=== PATIENT | male | born 1955 | race Caucasian/White ===

== ENCOUNTER 2018-01-23 18:23 | Emergency (ER) | payer BC ==
[~2018-01-23] VITALS: Ht 185.4 cm; Wt 122.5 kg
[~2018-01-23 18:23] MED LIST: ALPRAZOLAM0.25 MG PO; ASPIRIN81 MG PO; ATIVAN0.5 MG PO; CELEBREX100 MG PO; DAILY VITAMIN1 EAC3 PO; FAMOTIDINE20 MG PO; HYCET 7.5 MG-3473 ML PO; LABETALOL HCL100 MG PO; LEVOFLOXACIN500 MG PO; LIDOCAINE PATCH TOP; MIRAPEX0.25 MG PO; NEURONTIN300 MG PO; NIFEDIPINE ER30 M1 PO; PROMETHAZINE HC25 M1 PO; SIMVASTATIN20 MG PO; SYNTHROID200 MCG PO; TESSALON PERLE100 MG PO; VITAMIN D31000 UNI1 PO; ZESTRIL10 MG PO; ZOLOFT50 MG PO
[2018-01-23] MEDS ORDERED: BROMFED DM COU118 ML PO (19:22)
[2018-01-23] MEDS ORDERED: NASONEX17 GM (19:22)
[2018-01-23] MEDS ORDERED: XYZAL5 MG PO (19:22)
== END 2018-01-23 19:25 | disposition home or self-care (01) ==
LOC: FSED 18:23
DX: R05 Cough (principal); J00 Acute nasopharyngitis [common cold]; J02.9 Acute pharyngitis, unspecified
CPT/HCPCS: 99282

== ENCOUNTER 2018-08-29 01:49 | Emergency (ER) | payer BC ==
[~2018-08-29] VITALS: Ht 185.4 cm; Wt 136.1 kg
[~2018-08-29 01:49] MED LIST changes: +BROMFED DM COU118 ML PO; +NASONEX17 GM; +XYZAL5 MG PO
[2018-08-29] MEDS ORDERED: ASPIRIN 81 MG CHEW TAB PO ONE (02:15)
[2018-08-29 02:29] LABS: BASOPHILS % 0.2 % (0.0-1.0); EOSINOPHILS # (AUTO) 0.1 (0.0-0.4); EOSINOPHILS % 1.4 % (0.0-6.0); HEMATOCRIT 47.2 % (38.2-49.6); HEMOGLOBIN 15.8 g/dL (14.0-18.0); LYMPHOCYTES # (AUTO) 2.6 (1.0-3.2); LYMPHOCYTES % 25.6 % (18.0-39.1); MEAN CORPUSCULAR HEMOGLOBIN 29.2 pg (28-32); MEAN CORPUSCULAR HGB CONC 33.5 g/dL (31-35); MEAN CORPUSCULAR VOLUME 87.2 fL (81-99); MONOCYTES % 9.3 % (4.4-11.3); NEUTROPHILS # (AUTO) 6.5 (2.1-6.9); NEUTROPHILS % 63.2 % (38.7-80.0); PLATELET COUNT 197 x10e3/uL (140-360); RED BLOOD COUNT 5.41 x10e6/uL (4.3-5.7); RED CELL DISTRIBUTION WIDTH 13.4 % (11.7-14.4)
[2018-08-29 02:34] LABS: INR 0.87; PARTIAL THROMBOPLASTIN TIME 28.6 seconds (23.8-35.5); PROTHROMBIN TIME 12.6 seconds (11.9-14.5)
[2018-08-29 02:41] LABS: ALBUMIN 4.4 g/dL (3.5-5.0); ALBUMIN/GLOBULIN RATIO 1.2 (0.8-2.0); ANION GAP 16.8 mmol/L (8-16); CALCIUM 9.9 mg/dL (8.4-10.2); CREATININE, SERUM 1.39 mg/dL (0.72-1.25); POTASSIUM 3.8 mmol/L (3.5-5.1)
[2018-08-29 02:44] LABS: CLARITY,URINE CLEAR (CLEAR); COLOR,URINE YELLOW (YELLOW); LEUKOCYTE ESTERASE ,URINE NEGATIVE (NEGATIVE); NITRITE,URINE NEGATIVE (NEGATIVE); PROTEIN,URINE DIPSTICK NEGATIVE (NEGATIVE)
[2018-08-29] MEDS ORDERED: ONDANSETRON HCL INJ 2 MG/ML VIAL IV STA (02:44)
[2018-08-29 02:45] LABS: BILIRUBIN,URINE NEGATIVE (NEGATIVE); KETONES,URINE NEGATIVE (NEGATIVE); URINE UROBILINOGEN 0.2 mg/dL (0.2 - 1)
[2018-08-29] MEDS ORDERED: SODIUM CHLORIDE 0.9% 1000ML 1,000 ML IV SCH (02:45)
[2018-08-29 02:47] LABS: BACTERIA,URINE RARE /HPF; EPITHELIAL CELLS,URINE RARE /LPF; RBC,URINE 0-5 /HPF (0-5); WBC,URINE (MAN) 0-5 /HPF (0-5)
[2018-08-29 02:48] LABS: CREATINE KINASE MB 1.2 ng/mL (0-5.0)
[2018-08-29] MEDS ORDERED: IOPAMIDOL 370 MG/ML 200 ML INFUS..BTL INJ ONE (03:27)
[2018-08-29] MEDS ORDERED: SODIUM CHLORIDE 0.9% 50ML 50 ML ONE (03:27)
--- NOTE | 2018-08-29 04:14 | Diagnostic Imaging Report ---
EXAM: CT Chest WITH contrast (PE Protocol) INDICATION: Hypertension ^R/O PE ^[id number] ^0339 COMPARISON: None TECHNIQUE: Chest was scanned utilizing a multidetector helical scanner from the lung apex through the level of the diaphragm after administration of IV contrast. Thin section reconstructions were obtained with special concentration on the pulmonary arteries. Coronal and sagittal reformations were obtained. Pulmonary embolism protocol was performed. IV CONTRAST: 100 mL of Isovue 370 COMPLICATIONS: None RADIATION DOSE: Total DLP: 620 3. mGy*cm Estimated effective dose: (DLP x 0.014 x size factor) mSv CTDIvol has been reviewed. It is below the limits set by the Radiation Protocol Committee (RPC). Dose modulation, iterative reconstruction, and/or weight based adjustment of the mA/kV was utilized to reduce the radiation dose to as low as reasonably achievable. FINDINGS: LINES/ TUBES: None. LUNGS AND AIRWAYS: No filling defect is identified within the pulmonary arteries to the segmental level. The lungs are unremarkable. Airways are normal. PLEURA: The pleural spaces are clear. HEART AND MEDIASTINUM: The thyroid gland is normal. No mediastinal, hilar or axillary lymphadenopathy. The heart is normal in size.. There is no pericardial effusion. . UPPER ABDOMEN: Gallstones in the gallbladder neck. No adjacent stranding. BONES: There are degenerative changes in the thoracic spine. SOFT TISSUES: Unremarkable. IMPRESSION: No pulmonary emboli. Signed by: DR. Andrade Hernandez MD on 08/29/2018 4:10 AM
[2018-08-29] MEDS ORDERED: SODIUM CHLORIDE 0.9% 1000ML 1,000 ML IV STA (04:47)
== END 2018-08-29 05:36 | disposition home or self-care (01) ==
LOC: ER 01:49
DX: E86.0 Dehydration (principal); R00.0 Tachycardia, unspecified
CPT/HCPCS: 36415; 71260; 80053; 81001; 82550; 82553; 84484; 85025; 85379; 85610; 85730; 93005; 99284; J2405; J7030; Q9967

== ENCOUNTER 2018-09-17 09:08 | Emergency (ER) | payer BC ==
[~2018-09-17] VITALS: Ht 185.4 cm; Wt 136.1 kg
--- OUTSIDE RECORDS SUMMARY | 2018-09-17 09:11 | XMS REPORT ---
Author Author [facility] Address Unknown Phone Unavailable Care Team Providers [employer] Officer Name Role Phone Connie PAULSON Unavailable Unavailable Problems This patient has no known problems. Allergies, Adverse Reactions, Alerts This patient has no known allergies or adverse reactions. Medications This patient has no known medications. Results Test Description Test Time Test Comments Text Results Atomic Results Result Comments CT CHEST W 2018-08-29 03:59:00 [place] [address] Patient Name: ROSSANA LEWIS MR #: [id number] : 1955 Age/Sex: 63/M Req #: [id number] [facility] Physician: Ordered by: ARIE PAULSON MD Report #: [id number] Location: ER Room/Bed: Procedure: [id number] CT/CT CHEST W Exam Date: 08/29/18 Exam Time: 338 REPORT STATUS: Signed EXAM: CT Chest WITH contrast (PE Protocol) INDICATION: Hypertension R/O PE [id number] COMPARISON: None TECHNIQUE: Chest was scanned utilizing a multidetector helical scanner from the lung apex through the level of the diaphragm after administration of IV contrast. Thin section reconstructions were obtained with special concentration on the pulmonary arteries. Coronal and sagittal reformations were obtained. Pulmonary embolism protocol was performed. IV CONTRAST: 100 mL of Isovue 370 COMPLICATIONS: None RADIATION DOSE: Total DLP: 620 3. mGy*cm Estimated effective dose: (DLP x 0.014 x size factor) mSv CTDIvol has been reviewed. It is below the limits set by the Radiation Protocol Committee (RPC). Dose modulation, iterative reconstruction, and/or weight based adjustment of the mA/kV was utilized to reduce the radiation dose to as low as reasonably achievable. FINDINGS: LINES/ TUBES: None. LUNGS AND AIRWAYS: No filling defect is identified within the pulmonary arteries to the segmental level. The lungs are unremarkable. Airways are normal. PLEURA: The pleural spaces are clear. HEART AND MEDIASTINUM: The thyroid gland is normal. No mediastinal, hilar or axillary lymphadenopathy. The heart is normal in size.. There is no pericardial effusion. . UPPER ABDOMEN: Gallstones in the gallbladder neck. No adjacent stranding. BONES: There are degenerative changes in the thoracic spine. SOFT TISSUES: Unremarkable. IMPRESSION: No pulmonary emboli. Signed by: DR. Andrade Hernandez MD on 08/29/2018 4:10 AM Dictated By: ANDRADE HERNANDEZ MD 9 Transcribed By: ZAHRA on 08/29/18409 COPY TO: ARIE PAULSON MD
[2018-09-17 10:09] LABS: BASOPHILS % 0.5 % (0.0-1.0); EOSINOPHILS # (AUTO) 0.2 (0.0-0.4); HEMATOCRIT 44.4 % (38.2-49.6); HEMOGLOBIN 14.6 g/dL (14.0-18.0); LYMPHOCYTES # (AUTO) 2.2 (1.0-3.2); LYMPHOCYTES % 29.3 % (18.0-39.1); MEAN CORPUSCULAR HEMOGLOBIN 29.3 pg (28-32); MEAN CORPUSCULAR HGB CONC 32.9 g/dL (31-35); MONOCYTES # (AUTO) 0.7 (0.2-0.8); MONOCYTES % 9.7 % (4.4-11.3); NEUTROPHILS # (AUTO) 4.4 (2.1-6.9); NEUTROPHILS % 58.2 % (38.7-80.0); PLATELET COUNT 163 x10e3/uL (140-360); RED BLOOD COUNT 4.99 x10e6/uL (4.3-5.7); RED CELL DISTRIBUTION WIDTH 13.6 % (11.7-14.4)
[2018-09-17 10:17] LABS: BILIRUBIN,URINE NEGATIVE (NEGATIVE); CLARITY,URINE CLEAR (CLEAR); COLOR,URINE YELLOW (YELLOW); KETONES,URINE NEGATIVE (NEGATIVE); LEUKOCYTE ESTERASE ,URINE NEGATIVE (NEGATIVE); NITRITE,URINE NEGATIVE (NEGATIVE); PROTEIN,URINE DIPSTICK NEGATIVE (NEGATIVE); URINE UROBILINOGEN 0.2 mg/dL (0.2 - 1)
[2018-09-17 10:24] LABS: ALBUMIN 3.9 g/dL (3.5-5.0); ALBUMIN/GLOBULIN RATIO 1.1 (0.8-2.0); CALCIUM 9.2 mg/dL (8.4-10.2); CREATININE, SERUM 1.41 mg/dL (0.72-1.25)
[2018-09-17 10:34] LABS: BACTERIA,URINE RARE /HPF; EPITHELIAL CELLS,URINE RARE /LPF; RBC,URINE 0-5 /HPF (0-5)
[2018-09-17] MEDS ORDERED: ULTRAM50 MG PO (12:06)
[2018-09-17] MEDS ORDERED: HYDROCODONE/APAP 10MG-325MG TAB ONE (12:08)
[2018-09-17] MEDS ORDERED: HYDROCODONE/APAP 10MG-325MG TAB PO ONE (12:15)
[2018-09-17 12:36] VITALS: BP 149/96
[2018-09-17] MEDS ORDERED: HYDROMORPHONE 2MG/ML 2 MG/ML ML IV ONE (18:45)
== END 2018-09-17 12:10 | disposition home or self-care (01) ==
LOC: ER 09:08
DX: R10.11 Right upper quadrant pain (principal); K80.20 Calculus of gallbladder without cholecystitis without obstruction
CPT/HCPCS: 36415; 80053; 81001; 83690; 85025; 93005; 99283; J1170

== ENCOUNTER 2019-02-19 09:13 | Emergency (ER) | payer BC ==
[~2019-02-19] VITALS: Ht 185.4 cm; Wt 136.1 kg
[~2019-02-19 09:13] MED LIST changes: +ULTRAM50 MG PO
--- OUTSIDE RECORDS SUMMARY | 2019-02-19 09:16 | XMS REPORT | Continuity of Care Document ---
Author Author [facility] Interface Address Unknown Phone Unavailable Problems Problem Status Onset Date Classification Date Reported Comments Source Anxiety Active Problem 09/17/2018 [facility] Bronchitis Active Problem 09/17/2018 [facility] Hypertensive emergency Active Problem 09/17/2018 [facility] Medications Medication Details Route Status Patient Instructions Ordering Provider Order Date Source Tramadol Hcl (Ultram) 50 Mg Tablet Every 6 Hours as needed for Pain Active Enrike 09/17/2018 [facility] D-Methorphan Hb/P-Epd Hcl/Bpm (Bromfed Dm Cough Syrup) 118 Ml Syrup Every 4 Hours as needed for Cough Active Ray 01/23/2018 [facility] Levocetirizine Dihydrochloride (Xyzal) 5 Mg Tablet Daily Active Ray 01/23/2018 [facility] Mometasone Furoate (Nasonex) 17 Gm [place] Daily Active Ray 01/23/2018 [facility] Alprazolam 0.25 Mg Tablet Every 8 Hours Active Rossana 10/01/2016 [facility] Famotidine 20 Mg Tab Twice Daily Before Meals Active Rossana 10/01/2016 [facility] Labetalol Hcl 100 Mg Tablet Every 12 Hours Active Rossana 10/01/2016 [facility] Nifedipine (Nifedipine Er) 30 Mg Tab.er.24 Every 12 Hours Active Rossana 10/01/2016 [facility] Lisinopril (Zestril*) 10 Mg Tablet, 10 Mg Oral Daily Active 10/01/2016 [facility] Benzonatate (Tessalon Perle) 100 Mg Capsule, 100 Mg Oral Every 12 Hours as needed for Cough Active 09/30/2016 [facility] Cholecalciferol (Vitamin D3) (Vitamin D3) 1,000 Unit Tablet, 1000 Unit Oral Daily Active 09/30/2016 [facility] Hydrocodone Bit/Acetaminophen (Hycet 7.5 Mg-325 Mg/15 Ml Alexandra) 473 Ml Solution, 5 Ml Oral Every 4 Hours for Cough Active 09/30/2016 [facility] Levofloxacin 500 Mg Tablet, 500 Mg Oral Daily Active 09/30/2016 [facility] Multivitamin (Daily Vitamin) 1 Each Tablet, 1 Tab Oral Daily Active 09/30/2016 [facility] Aspirin 81 Mg Tab.chew Active [facility] Celecoxib (Celebrex*) 100 Mg Capsule Daily Active [facility] Gabapentin (Neurontin) 300 Mg Capsule Daily Active [facility] Levothyroxine Sodium (Synthroid) 200 Mcg Tablet Today At 6:30AM Active [facility] Lidocaine Patch Every 12 Hours Active [facility] Lorazepam (Ativan*) 0.5 Mg Tablet Bedtime Active [facility] Pramipexole Di-Hcl (Mirapex) 0.25 Mg Tablet Daily Active [facility] Promethazine Hcl 25 Mg Tablet Daily Active [facility] Sertraline Hcl (Zoloft) 50 Mg Tablet Bedtime Active [facility] Simvastatin 20 Mg Tablet Today At 9:00PM Active [facility] Allergies, Adverse Reactions, Alerts Substance Category Reaction Severity Reaction type Status Date Reported Comments Source Immunizations Immunization Date Given Site Status Last Updated Comments Source Results Order Name Results Value Reference Range Date Interpretation Comments Source Blood leukocytes automated count (number/volume) 7.62 4.8 - 10.8 09/17/2018 [facility] Blood erythrocytes automated count (number/volume) 4.99 4.3 - 5.7 09/17/2018 [facility] Blood hemoglobin measurement (moles/volume) 14.6 14.0 - 18.0 09/17/2018 [facility] Automated blood hematocrit (volume fraction) 44.4 38.2 - 49.6 09/17/2018 [facility] Automated erythrocyte mean corpuscular volume 89.0 81 - 99 09/17/2018 [facility] Automated erythrocyte mean corpuscular hemoglobin (mass per erythrocyte) 29.3 28 - 32 09/17/2018 [facility] Automated erythrocyte mean corpuscular hemoglobin concentration measurement (mass/volume) 32.9 31 - 35 09/17/2018 [facility] RDW BldCo-Rto 13.6 11.7 - 14.4 09/17/2018 [facility] Automated blood platelet count (count/volume) 163 140 - 360 09/17/2018 [facility] Automated blood segmented neutrophil count as percentage of total leukocytes 58.2 38.7 - 80.0 09/17/2018 [facility] Automated blood lymphocyte count as percentage ot total leukocytes 29.3 18.0 - 39.1 09/17/2018 [facility] Automated blood monocyte count as percentage of total leukocytes 9.7 4.4 - 11.3 09/17/2018 [facility] Automated blood eosinophil count as percentage of total leukocytes 2.0 0.0 - 6.0 09/17/2018 [facility] Automated blood basophil count as percentage of total leukocytes 0.5 0.0 - 1.0 09/17/2018 [facility] IM GRANULOCYTES % 0.3 0.0 - 1.0 09/17/2018 [facility] Automated blood neutrophil count 4.4 2.1 - 6.9 09/17/2018 [facility] Blood lymphocytes count (number/volume) 2.2 1.0 - 3.2 09/17/2018 [facility] Blood monocytes automated count (number/volume) 0.7 0.2 - 0.8 09/17/2018 [facility] Automated blood eosinophil count 0.2 0.0 - 0.4 09/17/2018 [facility] Automated blood basophil count (count/volume) 0.0 0.0 - 0.1 09/17/2018 [facility] Absolute Immature Granulocyte (auto 0.02 0 - 0.1 09/17/2018 [facility] Serum or plasma sodium measurement (moles/volume) 138 136 - 145 09/17/2018 [facility] Serum or plasma potassium measurement (moles/volume) 4.0 3.5 - 5.1 09/17/2018 [facility] Serum or plasma chloride measurement (moles/volume) 101 98 - 107 09/17/2018 [facility] Serum or plasma carbon dioxide, total measurement (moles/volume) 25 22 - 29 09/17/2018 [facility] Serum or plasma anion gap 16.0 8 - 16 09/17/2018 [facility] Serum or plasma urea nitrogen measurement (mass/volume) 31 7 - 26 09/17/2018 [facility] Serum or plasma creatinine measurement (mass/volume) 1.41 0.72 - 1.25 09/17/2018 [facility] Serum or plasma urea nitrogen/creatinine mass ratio 22 6 - 25 09/17/2018 [facility] Estimated glomerular filtration rate (GFR) determination 51 60 09/17/2018 [facility] Glucose measurement 181 74 - 118 09/17/2018 [facility] Serum or plasma calcium measurement (mass/volume) 9.2 8.4 - 10.2 09/17/2018 [facility] Serum or plasma total bilirubin measurement (mass/volume) 0.3 0.2 - 1.2 09/17/2018 [facility] Aspartate Amino Transf (AST/SGOT) 17 5 - 34 09/17/2018 [facility] Serum or plasma alanine aminotransferase measurement (enzymatic activity/volume) 33 0 - 55 09/17/2018 [facility] Serum or plasma protein measurement (mass/volume) 7.3 6.5 - 8.1 09/17/2018 [facility] Serum or plasma albumin measurement (mass/volume) 3.9 3.5 - 5.0 09/17/2018 [facility] Plasma globulin measurement (mass/volume) 3.4 2.3 - 3.5 09/17/2018 [facility] Serum or plasma albumin/globulin mass ratio 1.1 0.8 - 2.0 09/17/2018 [facility] Serum or plasma alkaline phosphatase measurement (enzymatic activity/volume) 64 40 - 150 09/17/2018 [facility] Serum or plasma lipase measurement (enzymatic activity/volume) 54 8 - 78 09/17/2018 [facility] Urine color determination YELLOW YELLOW 09/17/2018 [facility] Urine clarity CLEAR CLEAR 09/17/2018 [facility] Specific gravity of Urine by Test strip 1.025 1.010 - 1.025 09/17/2018 [facility] Urine pH measurement by automated test strip 6 5 - 7 09/17/2018 [facility] Urine leukocyte esterase detection by dipstick NEGATIVE NEGATIVE 09/17/2018 [facility] Urine nitrite detection NEGATIVE NEGATIVE 09/17/2018 [facility] Urine protein measurement by test strip (mass/volume) NEGATIVE NEGATIVE 09/17/2018 [facility] Urine glucose detection NEGATIVE NEGATIVE 09/17/2018 [facility] Urine ketones detection by automated test strip NEGATIVE NEGATIVE 09/17/2018 [facility] Urine urobilinogen measurement by test strip (mass/volume) 0.2 0.2 - 1 09/17/2018 [facility] Urine total bilirubin measurement (mass/volume) NEGATIVE NEGATIVE 09/17/2018 [facility] Urine erythrocytes detection NEGATIVE NEGATIVE 09/17/2018 [facility] Automated urine sediment leukocyte count by microscopy (number/high power field) NONE 0 - 5 09/17/2018 [facility] Erythrocytes detection in urine sediment by light microscopy 0-5 0 - 5 09/17/2018 [facility] Bacteria detection in urine sediment by light microscopy RARE NONE 09/17/2018 [facility] Epithelial cells detection in urine sediment by light microscopy RARE NONE 09/17/2018 [facility] Prothrombin time (PT) in platelet poor plasma by coagulation assay 12.6 11.9 - 14.5 08/29/2018 [facility] INR in Platelet poor plasma by Coagulation assay 0.87 08/29/2018 [facility] Activated partial thromboplastin time (aPTT) in platelet poor plasma bycoagulation assay 28.6 23.8 - 35.5 08/29/2018 [facility] Fibrin D-dimer DDU measurement in platelet poor plasma (mass/volume) 0.59 0.00 - 0.45 08/29/2018 [facility] Serum or plasma creatine kinase measurement (enzymatic activity/volume) 92 30 - 200 08/29/2018 [facility] Serum or plasma creatine kinase MB measurement (mass/volume) 1.20 0 - 5.0 08/29/2018 [facility] Troponin I measurement by highly sensitive enzyme immunoassay 0.009 0 - 0.300 08/29/2018 [facility] Vital Signs Vital Sign Value Date Comments Source Encounters Location Location Details Encounter Type Encounter Number Reason For Visit Attending Provider ADM Date DC Date Status Source Departed Emergency Room [id number] KELLY SOMMERS MD 01/23/2018 01/23/2018 [facility] Departed Emergency Room [id number] ARIE PAULSON MD 08/29/2018 08/29/2018 [facility] Departed Emergency Room [id number] CARLOS SCHILLING MD 09/17/2018 09/17/2018 [facility] Procedures Procedure Code Date Perfomer Comments Source Computed tomography of chest with contrast [id number] 08/29/2018 [facility]
[2019-02-19] MEDS ORDERED: SODIUM CHLORIDE 0.9% 1000ML 1,000 ML IV SCH (09:45)
--- NOTE | 2019-02-19 10:27 | NUR ---
IV BY RICARDO, CT
[2019-02-19] MEDS ORDERED: SODIUM CHLORIDE 0.9% 50ML 50 ML ONE (10:29)
[2019-02-19] MEDS ORDERED: IOPAMIDOL 370 MG/ML 200 ML INFUS..BTL INJ ONE (10:29)
--- NOTE | 2019-02-19 12:00 | Diagnostic Imaging Report ---
EXAM: CT Abdomen and Pelvis WITH contrast INDICATION: Abdominal pain COMPARISON: None. TECHNIQUE: Abdomen and pelvis were scanned utilizing a multidetector helical scanner from the lung base to the pubic symphysis after administration of IV contrast. Coronal and sagittal reformations were obtained. Routine protocol was performed. Scan was performed when during portal venous phase. Dose modulation, iterative reconstruction, and/or weight based adjustment of the mA/kV was utilized to reduce the radiation dose to as low as reasonably achievable. IV CONTRAST: 100 mL of Isovue-370 ORAL CONTRAST: None RADIATION DOSE: Total DLP: 879.11 mGy*cm Estimated effective dose: (DLP x 0.015 x size factor) mSv COMPLICATIONS: None FINDINGS: LINES and TUBES: None. LOWER THORAX: Lung bases clear. Heart size normal. HEPATOBILIARY: No focal hepatic lesions. No biliary ductal dilation. GALLBLADDER: No radio-opaque stones or sludge. No wall thickening. SPLEEN: No splenomegaly. PANCREAS: No focal masses or ductal dilatation. ADRENALS: No adrenal nodules KIDNEYS/URETERS: Kidneys enhance symmetrically. There is nonspecific mild bilateral perinephric fat stranding. No hydronephrosis. No cystic or solid mass lesions. No stones. GI TRACT: No abnormal or evidence of bowel obstruction. There is mild distention of the terminal ileum with some wall thickening. Sigmoid diverticulosis with no CT evidence for acute diverticulitis. Appendix is normal. PELVIC ORGANS/BLADDER: Urinary bladder unremarkable. No discrete abnormal mass or fluid collection in the pelvis. LYMPH NODES: No dominant lymph node mass is seen in the abdomen, retroperitoneum or pelvis. VESSELS: The abdominal aorta is atherosclerotic with no aneurysm or dissection. IVC and portal system unremarkable. PERITONEUM / RETROPERITONEUM: No pneumoperitoneum or ascites. BONES: No acute or suspicious bony lesions. SOFT TISSUES: Superficial surrounding soft tissue unremarkable. There is a small left inguinal hernia containing fat. IMPRESSION: 1. Mild distention and wall thickening of the terminal ileum may reflect enteritis or inflammatory bowel disease. 2. Sigmoid diverticulosis with no CT evidence for diverticulitis. Staff: [place] Signed by: Dr. Steve Gilbert M.D. on 02/19/2019 11:56 AM
== END 2019-02-19 12:10 | disposition home or self-care (01) ==
LOC: FSED 09:13
DX: M54.6 Pain in thoracic spine (principal); R10.11 Right upper quadrant pain
CPT/HCPCS: 74177; 80053; 81003; 82553; 84484; 85025; 93005; 99284; J7030; Q9967

== ENCOUNTER 2020-04-01 04:30 | Inpatient (IN) | payer MEDICARE, BC, OTHER ==
[~2020-04-01] VITALS: Ht 185.4 cm; Wt 136.1 kg
--- NOTE | 2020-04-01 04:55 | NUR ---
EKG GIVEN TO MD FOR INTERPRETATION
[2020-04-01 05:55] LABS: BASOPHILS # (AUTO) 0.1 (0.0-0.1); BASOPHILS % 0.4 % (0.0-1.0); EOSINOPHILS # (AUTO) 0.1 (0.0-0.4); EOSINOPHILS % 0.7 % (0.0-6.0); HEMOGLOBIN 14.4 g/dL (14.0-18.0); LYMPHOCYTES # (AUTO) 3.1 (1.0-3.2); LYMPHOCYTES % 22.7 % (18.0-39.1); MEAN CORPUSCULAR HEMOGLOBIN 28.9 pg (28-32); MEAN CORPUSCULAR VOLUME 90.2 fL (81-99); MONOCYTES # (AUTO) 1.3 (0.2-0.8); MONOCYTES % 9.5 % (4.4-11.3); NEUTROPHILS # (AUTO) 8.9 (2.1-6.9); NEUTROPHILS % 66.2 % (38.7-80.0); PLATELET COUNT 166 x10e3/uL (140-360); RED BLOOD COUNT 4.99 x10e6/uL (4.3-5.7); RED CELL DISTRIBUTION WIDTH 13.7 % (11.7-14.4)
[2020-04-01 06:02] LABS: INR 0.87; PROTHROMBIN TIME 12.3 seconds (11.9-14.5)
[2020-04-01 06:03] LABS: PARTIAL THROMBOPLASTIN TIME 25.1 seconds (23.8-35.5)
[2020-04-01 06:11] LABS: ALBUMIN 4.7 g/dL (3.5-5.0); ALBUMIN/GLOBULIN RATIO 1.3 (0.8-2.0); ANION GAP 17.5 mmol/L (8-16); CALCIUM 9.9 mg/dL (8.4-10.2); CREATININE, SERUM 1.36 mg/dL (0.72-1.25); POTASSIUM 4.5 mmol/L (3.5-5.1)
[2020-04-01 06:18] LABS: CREATINE KINASE MB 0.7 ng/mL (0-5.0)
--- NOTE | 2020-04-01 06:26 | NUR ---
DR. CALDERON AT BEDSIDE FOR INITAL EVAL, PT ENDORSING TO INCREASED PAIN 8/10 AND NOTED THAT RT KNEE IS WORSE IN APPEARANCE WITH SWELLING, ED MD REVIEWING WORKUP AND PT MADE AWARE OF PENDING X-RAY RESULTS MD IS REVIEWING NOW.
--- NOTE | 2020-04-01 06:41 | Diagnostic Imaging Report ---
Examination: Single AP view of the chest. COMPARISON: None. INDICATION: Status post fall, right knee pain IMPRESSION: 1. Lines and Tubes: None 2. Lungs are grossly clear. No consolidation or effusion. 3. Cardiomediastinal silhouette is normal. Pulmonary vasculature is normal. 4. No acute bony abnormalities. Signed by: Dr. Ugo Mendenhall M.D. on 04/01/2020 6:38 AM
[2020-04-01] MEDS ORDERED: ONDANSETRON HCL INJ 2MG/ML 2ML 2 MG/ML VIAL IV STA (06:43)
[2020-04-01] MEDS ORDERED: MORPHINE SULFATE INJ 4 MG/ML INJ 1ML IV PRN (06:45)
--- NOTE | 2020-04-01 06:53 | Diagnostic Imaging Report ---
Exam: Right Knee Series. History: Status post fall, right knee pain Comparison: None. Findings: 3 views of the right knee. There is normal bone mineralization. No acute, displaced fracture or dislocation. Joint spaces are relatively well-preserved. Moderate suprapatellar effusion. Multiple rounded and elongated calcific fragments project at the level of the effusion. A single 5 mm calcification projects in the soft tissues posterior to the distal femur . Impression: 1. No acute, displaced fracture or dislocation. 2. Moderate suprapatellar effusion. Multiple rounded and elongated calcific fragments projecting in the soft tissues at the level of the effusion are indeterminate. They do not have the appearance of avulsion fracture fragments and no donor site is identified. 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 Recommend MRI knee for further evaluation. 3. 5 mm calcification projecting in the soft tissues posterior to the distal femur is likely vascular in origin. Signed by: Dr. Ugo Mendenhall M.D. on 04/01/2020 6:50 AM
--- NOTE | 2020-04-01 06:55 | NUR ---
DR. CALDERON SPOKE WITH RONA ZAMORANO MD TO COME SEE PT STAT FOR TX.
[2020-04-01] MEDS ORDERED: MORPHINE SULFATE 2 MG/ML SYR 1ML IV PRN (07:00)
--- NOTE | 2020-04-01 07:00 | Emergency Department Note ---
History of Present Illnes History of Present Illness Chief Complaint: Extremity Trauma/Pain History of Present Illness This is a 64 year old male arrives to the ED with complaints of right knee pain after sustaining a mechanical fall. Chief Complaint Comment PATIENT FELL AT 0300 TRIPPING OVER A BASKET ON THE FLOOR, DENIES LOC OR HITTING HEAD, PATIENT STATES THAT HIS WEIGHT LANDED ON HIS RIGHT KNEE, THE RIGHT KNEE IS NOTED TO BE SWOLLEN, SEVERAL SKIN TEARS NOTED IN BILATERAL HANDS. PATIENT ANSWERS ALL NEUROLOGICAL QUESTIONS ADEQUATELY. Historian: Patient Onset (how long ago): hour(s) Severity: mild Onset quality: sudden Duration (how long): hour(s) Timing of current episode: constant Progression: unchanged Chronicity: recurrent Context: Reports trauma/injury Past Medical/Family History Physician Review I have reviewed the patient's past medical and family history. Any updates have been documented here. Past Medical History Recent Fever: No Clinical Suspicion of Infectio: No New/Unexplained Change in Ment: No Past Medical History: Hypertension, Diabetes, Hypothyroidism, Anxiety, Depression, Other Mental Illness, GERD, Hyperlipedemia, Chronic Back Pain Other Medical History: restless leg syndrome INSOMNIA PANIC ATTACKS CHRONIC ALAN KNEE PAIN MORBID OBESITY Past Surgical History: T&A Other Surgery: tonsilectomy Social History Smoking Cessation: Never Smoker Alcohol Use: None Any Illegal Drug Use: No TB Exposure/Symptoms: No Physically hurt or threatened: No Other Last Tetanus: UTD Any Pre-Existing Lines (PICC,: No Is patient up to date on immun: Yes Last Flu: UTD Last Pneumovax: UTD Review of Systems Review of Systems Constitutional: Reports no symptoms EENTM: Reports no symptoms Cardiovascular: Reports no symptoms Respiratory: Reports no symptoms Gastrointestinal: Reports no symptoms Genitourinary: Reports no symptoms Musculoskeletal: Reports as per HPI, Reports joint pain, Reports joint swelling Integumentary: Reports no symptoms Neurological: Reports no symptoms Psychological: Reports no symptoms Endocrine: Reports no symptoms Hematological/Lymphatic: Reports no symptoms Review of other systems: All other systems negative Physical Exam Related Data Allergies: Coded Allergies: No Known Allergies (Unverified , 09/17/18) Triage Vital Signs Vital Signs Date Time Temp Pulse Resp B/P (MAP) Pulse Ox O2 Delivery O2 Flow Rate FiO2 04/01/20 04:43 99.2 127 14 136/91 100 Vital signs reviewed: Yes Physical Exam CONSTITUTIONAL Constitutional: Present well-developed, Present well-nourished HENT HENT: Present normocephalic, Present atraumatic, Present oropharynx clear/moist, Present nose normal HENT L/R: Present left ext ear normal, Present right ext ear normal EYES Eyes: Reports PERRL, Reports conjunctivae normal NECK Neck: Present ROM normal PULMONARY Pulmonary: Present effort normal, Present breath sounds normal CARDIOVASCULAR Cardiovascular: Present regular rhythm, Present heart sounds normal, Present capillary refill normal, Present normal rate GASTROINTESTINAL Abdominal: Present soft, Present nontender, Present bowel sounds normal GENITOURINARY Genitourinary: Present exam deferred SKIN Skin: Present warm, Present dry MUSCULOSKELETAL Musculoskeletal: Present deformity, Present tenderness, Present swelling (over right knee) NEUROLOGICAL Neurological: Present alert, Present oriented x 3, Present no gross motor or sensory deficits PSYCHOLOGICAL Psychological: Present mood/affect normal, Present judgement normal Results Laboratory Result Diagram: 04/01/20 0514 04/01/20 0514 Laboratory Laboratory Tests Test 04/01/20 05:14 White Blood Count 13.42 x10e3/uL (4.8-10.8) Red Blood Count 4.99 x10e6/uL (4.3-5.7) Hemoglobin 14.4 g/dL (14.0-18.0) Hematocrit 45.0 % (38.2-49.6) Mean Corpuscular Volume 90.2 fL (81-99) Mean Corpuscular Hemoglobin 28.9 pg (28-32) Mean Corpuscular Hemoglobin Concent 32.0 g/dL (31-35) Red Cell Distribution Width 13.7 % (11.7-14.4) Platelet Count 166 x10e3/uL (140-360) Neutrophils (%) (Auto) 66.2 % (38.7-80.0) Lymphocytes (%) (Auto) 22.7 % (18.0-39.1) Monocytes (%) (Auto) 9.5 % (4.4-11.3) Eosinophils (%) (Auto) 0.7 % (0.0-6.0) Basophils (%) (Auto) 0.4 % (0.0-1.0) Neutrophils # (Auto) 8.9 (2.1-6.9) Lymphocytes # (Auto) 3.1 (1.0-3.2) Monocytes # (Auto) 1.3 (0.2-0.8) Eosinophils # (Auto) 0.1 (0.0-0.4) Basophils # (Auto) 0.1 (0.0-0.1) Absolute Immature Granulocyte (auto 0.07 x10e3/uL (0-0.1) Prothrombin Time 12.3 seconds (11.9-14.5) Prothromb Time International Ratio 0.87 Activated Partial Thromboplast Time 25.1 seconds (23.8-35.5) Sodium Level 137 mmol/L (136-145) Potassium Level 4.5 mmol/L (3.5-5.1) Chloride Level 101 mmol/L (98-107) Carbon Dioxide Level 23 mmol/L (22-29) Anion Gap 17.5 mmol/L (8-16) Blood Urea Nitrogen 21 mg/dL (7-26) Creatinine 1.36 mg/dL (0.72-1.25) Estimat Glomerular Filtration Rate 53 ML/MIN (60-) BUN/Creatinine Ratio 15 (6-25) Glucose Level 114 mg/dL (74-118) Calcium Level 9.9 mg/dL (8.4-10.2) Total Bilirubin 0.4 mg/dL (0.2-1.2) Aspartate Amino Transf (AST/SGOT) 22 IU/L (5-34) Alanine Aminotransferase (ALT/SGPT) 35 IU/L (0-55) Alkaline Phosphatase 57 IU/L (40-150) Creatine Kinase 85 IU/L (30-200) Creatine Kinase MB 0.70 ng/mL (0-5.0) Troponin I 0.011 ng/mL (0-0.300) Total Protein 8.2 g/dL (6.5-8.1) Albumin 4.7 g/dL (3.5-5.0) Globulin 3.5 g/dL (2.3-3.5) Albumin/Globulin Ratio 1.3 (0.8-2.0) Lab results reviewed: Yes Imaging Imaging results reviewed: Yes Impressions Impression: 1. No acute, displaced fracture or dislocation. 2. Moderate suprapatellar effusion. Multiple rounded and elongated calcific fragments projecting in the soft tissues at the level of the effusion are indeterminate. They do not have the appearance of avulsion fracture fragments and no donor site is identified. 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 Recommend MRI knee for further evaluation. 3. 5 mm calcification projecting in the soft tissues posterior to the distal femur is likely vascular in origin. Assessment & Plan Medical Decision Making MDM 64-year-old male arrives to the ED with right knee pain after sustaining a mechanical fall. Obvious deformity and swelling noted on exam. Patient normal popliteal and DP/PT pulses. Patient had a markedly tachycardic emergency department, labwork done to ensure no underlying infectious etiology. Patient noted to have mild leukocytosis this may be reactive. Patient informed of concerns of a patellar dislocation that will require surgical repair as well as his elevated heart rate. I urged recommended hospital admission for monitoring and operative repair, however, patient states he wishes to be sent home. 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 Patient understands he is to follow up on Friday with Dr. Alonso from orthopedics. The x-ray findings and presentation was discussed with Dr. Alonso who states patient is amenable to outpatient follow-up and to place in a knee immobilizer. Patient's tachycardia was concerning patient urged to stay for further monitoring. Patient agreed to get IV fluids in the emergency department but states he needs to go home. Recent is competent for decision-making at time of discharge, understands he is welcome to return to department any time. 0650: Patient agreed to be admitted to the hospital for further workup and management Assessment & Plan Final Impression: (1) Quadriceps muscle rupture (2) Quadriceps muscle strain (3) Patellar dislocation Depart Disposition: ADMITTED Last Vital Signs Date Time Temp Pulse Resp B/P (MAP) Pulse Ox O2 Delivery O2 Flow Rate FiO2 04/01/20 06:30 141 18 176/122 99 04/01/20 04:43 99.2 Home Meds Active Scripts Tramadol Hcl (ULTRAM) 50 Mg Tablet, 50 MG PO Q6H PRN for PAIN, #14 TAB Prov:CARLOS CALDERON DO 09/17/18 Levocetirizine Dihydrochloride (XYZAL) 5 Mg Tablet, 5 MG PO DAILY, #30 TAB 0 Refills Prov:KELLY SOMMERS MD 01/23/18 Mometasone Furoate (NASONEX) 17 Gm [place], 2 SPRAYS NA DAILY, #1 BOTTLE 0 Refills Prov:KELLY SOMMERS MD 01/23/18 D-Methorphan Hb/P-Epd Hcl/Bpm (BROMFED DM COUGH SYRUP) 118 Ml Syrup, 10 ML PO Q4HR PRN for COUGH, #250 ML 0 Refills Prov:KELLY SOMMERS MD 01/23/18 Nifedipine (NIFEDIPINE ER) 30 Mg Tab.er.24, 60 MG PO Q12HR for 30 Days Prov:NARINDER TRACY MD 10/01/16 Labetalol Hcl (LABETALOL HCL) 100 Mg Tablet, 150 MG PO Q12HR for 30 Days Prov:NARINDER TRACY MD 10/01/16 Famotidine (FAMOTIDINE) 20 Mg Tab, 20 MG PO BIDAC for 30 Days, TAB Prov:NARINDER TRACY MD 10/01/16 Alprazolam (ALPRAZOLAM) 0.25 Mg Tablet, 0.25 MG PO Q8HR for 15 Days Prov:NARINDER TRACY MD 10/01/16 Reported Medications [Lidocaine Patch] No Conflict Check, 5 % TOP Q12H 09/30/16 Promethazine Hcl (PROMETHAZINE HCL) 25 Mg Tablet, 25 MG PO DAILY, TAB 09/30/16 Celecoxib* (CELEBREX*) 100 Mg Capsule, 200 MG PO DAILY, #30 CAP 09/30/16 Pramipexole Di-Hcl (MIRAPEX) 0.25 Mg Tablet, 0.25 MG PO DAILY, #30 TAB 03/16/16 Aspirin (ASPIRIN) 81 Mg Tab.chew, 81 MG PO 09/05/15 Lorazepam* (ATIVAN*) 0.5 Mg Tablet, MG PO HS 09/05/15 Sertraline Hcl (ZOLOFT) 50 Mg Tablet, 200 MG PO HS, #30 TAB 09/05/15 Gabapentin (NEURONTIN) 300 Mg Capsule, 1200 MG PO DAILY 09/05/15 Simvastatin (SIMVASTATIN) 20 Mg Tablet, 20 MG PO 2100, EA 09/05/15 Levothyroxine Sodium (SYNTHROID) 200 Mcg Tablet, 200 MCG PO 0630, #30 TAB 09/05/15 Medications in the ED Morphine Sulfate 4 mg ONCE PRN IV SEVERE PAIN (7-10); Start 04/01/20 at 06:45; Stop 04/08/20 at 06:44 Ondansetron HCl 4 mg NOW STAT IV ; Start 04/01/20 at 06:43; Stop 04/01/20 at 06:48; Status DC CARLOS CALDERON, Apr 01, 2020 07:00
[2020-04-01] MEDS ORDERED: LORAZEPAM INJ 2 MG/ML VIAL ONE (07:19)
[2020-04-01] MEDS ORDERED: METOPROLOL TARTRATE INJ 1 MG/ML VIAL ONE (07:20)
[2020-04-01] MEDS ORDERED: SODIUM CHLORIDE 0.9% 1000ML 1,000 ML ONE (07:20)
[2020-04-01 10:40] VITALS: BP 121/81
[2020-04-01 11:33] VITALS: BP 121/81
[2020-04-01] MEDS ORDERED: LIDOCAINE 4% PATCH TP SCH (12:00)
[2020-04-01] MEDS ORDERED: BROMFED DM PO PRN (12:30)
[2020-04-01] MEDS: SODIUM CHLORIDE 0.9% 1000ML 1,000 ML IV SCH (12:57)
[2020-04-01] MEDS ORDERED: ALPRAZOLAM 0.25 MG TAB PO SCH (14:00)
[2020-04-01] MEDS: FAMOTIDINE 20 MG TAB PO SCH (15:30)
[2020-04-01] MEDS: ONDANSETRON HCL INJ 2MG/ML 2ML 2 MG/ML VIAL IV PRN (15:30)
[2020-04-01] MEDS ORDERED: PRINIVIL20 MG PO (15:31)
[2020-04-01] MEDS ORDERED: VENLAFAXINE HC100 MG PO (15:32)
[2020-04-01] MEDS ORDERED: ABILIFY5 MG PO (15:34)
[2020-04-01] MEDS ORDERED: VITAMIN B-121000 MC1 (15:44)
[2020-04-01] MEDS ORDERED: SPIRONOLACTONE25 MG PO (15:44)
[2020-04-01] MEDS ORDERED: VITAMIN B-121000 MCG PO (15:44)
[2020-04-01] MEDS ORDERED: AMBIEN10 MG PO (15:46)
[2020-04-01] MEDS ORDERED: TRAZODONE HCL50 MG PO (15:46)
--- NOTE | 2020-04-01 15:49 | NUR ---
ORTHOPEDIC CONSULTATION 64 year old community ambulator presents to the ED after a mechanical fall with complaints of right knee pain. Denies numbness, paresthesias or loss of distal motor function. Denies pain in any other extremity. PMdHx: HTN, DM II, HLD, Allergies: NKDA SurgHx: Denies FamHx: Non-contributory SocHx: Deneis Tob, EtOH, Drugs use HR 107 RR 14 T 98.8 BP 121/81, O2 96% Right Lower Leg Palpable defect of quadriceps tendon Unable to straight leg raise Motor: + EHL, FHL, TA, G/S Sensation grossly intact Pulses + DP, Post tib Comaprtments soft Negative calf tenderness Xrays demonstrate Right Patella [place] with calcifications of the quadriceps tendon suggestive of chronic calcific tendinitis 64 year old Male with Right Knee Quadriceps Tendon Rupture Plan for OR on Friday for Quad Tendon Repair Analgesics To be placed in compressive wrap and knee immobilizer DVT Prophylaxis WBAT in knee immobilizer Follow up PreOperative labs and work up Thank you for the consultation. Purvi Smith, DO [facility]
[2020-04-01] MEDS ORDERED: ENOXAPARIN SOD INJ 40 MG/0.4 ML SYR SC NR (16:00)
[2020-04-01 17:30] VITALS: BP 114/89
[2020-04-01] MEDS ORDERED: METFORMIN HCL500 M2 PO (18:16)
[2020-04-01 18:55] LABS: CLARITY,URINE CLEAR (CLEAR); COLOR,URINE YELLOW (YELLOW)
[2020-04-01 18:56] LABS: BACTERIA,URINE RARE /HPF; BILIRUBIN,URINE NEGATIVE (NEGATIVE); EPITHELIAL CELLS,URINE FEW /LPF; KETONES,URINE NEGATIVE (NEGATIVE); LEUKOCYTE ESTERASE ,URINE NEGATIVE (NEGATIVE); NITRITE,URINE NEGATIVE (NEGATIVE); PROTEIN,URINE DIPSTICK NEGATIVE (NEGATIVE); RBC,URINE 0-5 /HPF (0-5); URINE UROBILINOGEN 0.2 mg/dL (0.2 - 1); WBC,URINE (MAN) 0-5 /HPF (0-5)
[2020-04-01 20:00] VITALS: BP 133/78
[2020-04-01] MEDS: ARIPIPRAZOLE 2 MG TABLET PO SCH (21:00)
[2020-04-01] MEDS: ZOLPIDEM TARTRATE 10 MG TAB PO PRN (21:00)
[2020-04-01] MEDS ORDERED: SERTRALINE HCL 50 MG TAB PO SCH (21:00)
[2020-04-01] MEDS ORDERED: NIFEDIPINE CR 30 MG TAB PO SCH (21:00)
[2020-04-01] MEDS: SIMVASTATIN 20 MG TAB PO SCH (21:00)
[2020-04-01] MEDS: TRAZODONE HCL 50 MG TAB PO PRN (21:00)
[2020-04-01] MEDS ORDERED: LABETALOL HCL 100 MG TAB PO SCH (21:00)
[2020-04-01] MEDS ORDERED: LORAZEPAM 0.5 MG TAB PO SCH (21:00)
[2020-04-01 21:34] VITALS: BP 148/89
[2020-04-02] VITALS (10 sets, daily range): BP systolic 103–159; BP diastolic 68–103
[2020-04-02] MEDS: LORAZEPAM INJ 2 MG/ML VIAL IV PRN ×2 (02:53→20:04)
[2020-04-02 05:38] LABS: BASOPHILS # (AUTO) 0.1 (0.0-0.1); BASOPHILS % 0.5 % (0.0-1.0); EOSINOPHILS # (AUTO) 0.2 (0.0-0.4); EOSINOPHILS % 1.4 % (0.0-6.0); HEMATOCRIT 38.9 % (38.2-49.6); HEMOGLOBIN 12.2 g/dL (14.0-18.0); LYMPHOCYTES % 27.1 % (18.0-39.1); MEAN CORPUSCULAR HEMOGLOBIN 28.8 pg (28-32); MEAN CORPUSCULAR HGB CONC 31.4 g/dL (31-35); MONOCYTES # (AUTO) 1.1 (0.2-0.8); NEUTROPHILS # (AUTO) 6.7 (2.1-6.9); NEUTROPHILS % 60.7 % (38.7-80.0); PLATELET COUNT 188 x10e3/uL (140-360); RED BLOOD COUNT 4.23 x10e6/uL (4.3-5.7); RED CELL DISTRIBUTION WIDTH 13.8 % (11.7-14.4)
[2020-04-02 06:30] LABS: ANION GAP 13.6 mmol/L (8-16); CALCIUM 8.8 mg/dL (8.4-10.2); CHOL/HDL RATIO 3.8 (3.9-4.7); CREATININE, SERUM 1.43 mg/dL (0.72-1.25); MAGNESIUM 1.9 MG/DL (1.3-2.1); PHOSPHORUS 4.4 MG/DL (2.3-4.7); POTASSIUM 4.6 mmol/L (3.5-5.1)
[2020-04-02] MEDS: LEVOTHYROXINE SODIUM 100 MCG TAB PO SCH (06:30)
[2020-04-02] MEDS: SODIUM CHLORIDE 0.9% 1000ML 1,000 ML IV SCH ×3 (06:44→20:25)
[2020-04-02 06:52] LABS: THYROID STIMULATING HORMONE 2.29 uIU/mL (0.350-4.940)
[2020-04-02] MEDS: FAMOTIDINE 20 MG TAB PO SCH ×2 (07:30→16:39)
--- NOTE | 2020-04-02 08:59 | NUR ---
Met with James Sharif NP. Pt to have surgery on Friday by Dr. Farias. DC Plan pending.
[2020-04-02] MEDS ORDERED: PRAMIPEXOLE DIHYDROCHLORIDE 0.25 MG TAB PO SCH (09:00)
[2020-04-02] MEDS ORDERED: ASPIRIN 81 MG CHEW TAB PO SCH (09:00)
[2020-04-02] MEDS ORDERED: PROMETHAZINE HCL 25 MG TAB PO SCH (09:00)
[2020-04-02] MEDS ORDERED: CELECOXIB 100 MG CAP PO SCH (09:00)
[2020-04-02] MEDS: VENLAFAXINE HCL 100 MG PO SCH (09:00)
[2020-04-02] MEDS: FLUTICASONE PROPIONATE NASAL SPRAY NS SCH (09:57)
[2020-04-02] MEDS: LORATADINE 10 MG TAB PO SCH (09:58)
[2020-04-02] MEDS: SPIRONOLACTONE 25 MG TAB PO SCH (09:58)
[2020-04-02] MEDS: CYANOCOBALAMIN 1,000 MCG TAB PO SCH (09:58)
[2020-04-02] MEDS: LISINOPRIL 20 MG TAB PO SCH (09:58)
--- NOTE | 2020-04-02 11:23 | Consultation ---
DATE OF CONSULTATION: 04/02/2020 Cardiology Consultation Thank you so much for asking me see this nice man in consultation. Mr. Mosquera is a pleasant, but complex 64-year-old man, known to us from previous evaluations. He is noted to have sinus tachycardia. HISTORY OF PRESENT ILLNESS: The patient has chronic sinus tachycardia with previous EKGs here at [facility] in September 2016 and September 2018, also showing sinus tachycardia. PAST MEDICAL HISTORY: Significant for anxiety and psychiatric disorders. He reports he has had a previous cardiac evaluation with Dr. Denny at [facility], which was unremarkable. MEDICATIONS: His current home medications include lorazepam, trazodone, Ambien, and levothyroxine. PHYSICAL EXAMINATION: GENERAL: At this time shows an obese white man, about 61 inches tall, weighing about 300 pounds. HEAD, EYES, EARS, NOSE, AND THROAT: Unremarkable. NECK: Thick. THORAX: Heart sounds S1 and S2 are equal. No murmurs. LUNGS: Clear. ABDOMEN: Protuberant. EXTREMITIES: Shows the immobilizer for the knee. LABORATORY DATA: EKG shows sinus tachycardia, similar to previous EKGs. ASSESSMENT: 1. Knee injury. 2. Sinus tachycardia. 3. Anxiety and other psychiatric diagnoses. PLAN: Previous cardiac status is stable for surgery. He does not need any further cardiac evaluation at this time. Thank you for asking me to see him in consultation. MD RADHA Talavera/VITA /[id number]
[2020-04-02] MEDS ORDERED: HEPARIN SOD (PORCINE) 5,000 UNIT/ML VIAL SC NR (15:00)
[2020-04-02] MEDS ORDERED: PROMETHAZINE HCL 25 MG TAB PO PRN (15:30)
[2020-04-02] MEDS: ONDANSETRON HCL INJ 2MG/ML 2ML 2 MG/ML VIAL IV PRN (16:41)
[2020-04-02] MEDS: ARIPIPRAZOLE 2 MG TABLET PO SCH (20:25)
[2020-04-02] MEDS: SIMVASTATIN 20 MG TAB PO SCH (20:25)
[2020-04-02] MEDS: TRAZODONE HCL 50 MG TAB PO PRN (20:28)
--- NOTE | 2020-04-02 22:25 | NUR ---
Patient aware he is scheduled for surgery tomorrow (Right quadriceps tendon repair) to be done by Dr. Smith. Time of operation unknown and pt will be an "add-on" on the surgery list. Pt signed consent.
--- NOTE | 2020-04-02 23:00 | NUR ---
Patient repositioned in bed with right leg (with immobilizer on) elevated with pillow.
--- NOTE | 2020-04-02 23:55 | NUR ---
Patient assisted to bedside recliner as per pt preference. Foot of recliner elevated with right leg elevated with pillows. Patient stated he feels much more comfortable at this time.
[2020-04-03] VITALS: BP 120/93
[2020-04-03] MEDS: LORAZEPAM INJ 2 MG/ML VIAL IV PRN ×5 (00:01→22:24)
--- NOTE | 2020-04-03 00:30 | NUR ---
Patient stated he felt uncomfortable in recliner chair. Thus, pt assisted back in bed with right leg elevated with pillows and protected with immobilizer.
--- NOTE | 2020-04-03 03:55 | NUR ---
Spoke with patient's (Erlinda Mosquera) and informed about patient condition. aware and stated she understood plan of care especially scheduled surgery for the patient today.
[2020-04-03 04:00] VITALS: BP 157/78
[2020-04-03 05:08] LABS: BASOPHILS % 0.2 % (0.0-1.0); EOSINOPHILS # (AUTO) 0.1 (0.0-0.4); EOSINOPHILS % 0.4 % (0.0-6.0); HEMATOCRIT 40.6 % (38.2-49.6); HEMOGLOBIN 13.3 g/dL (14.0-18.0); LYMPHOCYTES # (AUTO) 2.7 (1.0-3.2); LYMPHOCYTES % 17.1 % (18.0-39.1); MEAN CORPUSCULAR HEMOGLOBIN 30.3 pg (28-32); MEAN CORPUSCULAR HGB CONC 32.8 g/dL (31-35); MEAN CORPUSCULAR VOLUME 92.5 fL (81-99); MONOCYTES # (AUTO) 1.4 (0.2-0.8); NEUTROPHILS # (AUTO) 11.4 (2.1-6.9); NEUTROPHILS % 72.9 % (38.7-80.0); PLATELET COUNT 196 x10e3/uL (140-360); RED BLOOD COUNT 4.39 x10e6/uL (4.3-5.7); RED CELL DISTRIBUTION WIDTH 13.8 % (11.7-14.4)
[2020-04-03 05:31] LABS: ANION GAP 16.4 mmol/L (8-16); CALCIUM 9.5 mg/dL (8.4-10.2); CREATININE, SERUM 1.3 mg/dL (0.72-1.25); POTASSIUM 4.4 mmol/L (3.5-5.1)
[2020-04-03] MEDS: FAMOTIDINE 20 MG TAB PO SCH ×2 (05:54→16:30)
[2020-04-03] MEDS: LEVOTHYROXINE SODIUM 100 MCG TAB PO SCH (05:54)
[2020-04-03 08:00] VITALS: BP 148/105
--- NOTE | 2020-04-03 08:15 | NUR ---
pt very anxious, continues to get up out of bed, repeatedly asking same questions; posing significant fall risk. spoke with DONATO Cavazos to obtain clearance for pt's , Erlinda Mosquera to come sit with pt at bedside.
[2020-04-03 08:38] VITALS: BP 157/78
[2020-04-03] MEDS: SODIUM CHLORIDE 0.9% 1000ML 1,000 ML IV SCH ×2 (08:57→20:29)
[2020-04-03] MEDS: CYANOCOBALAMIN 1,000 MCG TAB PO SCH (09:00)
[2020-04-03] MEDS ORDERED: ZINC SULFATE 50 MG CAP PO SCH (09:00)
[2020-04-03] MEDS: OYST-CAL-D 500MG TABLET PO SCH ×2 (09:00→17:00)
[2020-04-03] MEDS: SPIRONOLACTONE 25 MG TAB PO SCH (09:00)
[2020-04-03] MEDS: LORATADINE 10 MG TAB PO SCH (09:00)
[2020-04-03] MEDS: MULTIVITAMINS/MINERALS TAB PO SCH (09:00)
[2020-04-03] MEDS: MAGNESIUM OXIDE 400 MG TAB PO SCH ×2 (09:00→17:00)
[2020-04-03] MEDS: VENLAFAXINE HCL 100 MG PO SCH (09:00)
[2020-04-03] MEDS: LISINOPRIL 20 MG TAB PO SCH (09:00)
[2020-04-03] MEDS: ASCORBIC ACID 500 MG TAB PO SCH ×2 (09:00→17:00)
[2020-04-03] MEDS: FLUTICASONE PROPIONATE NASAL SPRAY NS SCH (09:00)
--- NOTE | 2020-04-03 09:58 | NUR ---
ASSESSMENT: Spiritual concern Pt anxious about procedure. Pt's at bedside. Pt's states this is "his first time to be in a hospital." Pt's states the have been 39 yrs and have no children. Intervention: Provided hospitality, empathic listening and prayer. Provided information on how to reach telecom specialist, if needed. Outcome: Pt & expressed appreciation for visit. No need to follow at this time. CEASAR PARSONS In Process Inspector Spiritual Care Department O: [phone]
--- NOTE | 2020-04-03 10:09 | NUR ---
pt left for OR with tech; left in stable condition.
[2020-04-03] MEDS ORDERED: BUPIVACAINE HCL 0.5% INJ 30 ML VIAL INJ ONE (10:21)
[2020-04-03] MEDS ORDERED: LIDOCAINE 1% W/EPINEPHRINE 20 ML VIAL ONE (10:23)
--- NOTE | 2020-04-03 12:53 | NUR ---
OPERATIVE NOTE - ORTHOPEDICS PREOPERATIVE DIAGNOSIS: Right Quardriceps Tendon Rupture POSTOPERATIVE DIAGNOSIS: Right Quardriceps Tendon Rupture PROCEDURE PERFORMED: Right Quadriceps Tendon Repair TOURNIQUET TIME: 73 minutes EBL: 20cc Indication: The patient is a 64-year-old male who suffered acute rupture of his Right Quardriceps Tendon diagnosed both by exam as well as x-ray. He had a massive deficit proximal to the superior pole of the patella on exam. OPERATIVE PROCEDURE: Prior to being taken to the operating room, patient identity and laterality of the procedure was confirmed. The patient was laid supine on the operative table and received general anesthetic with LMA by Anesth esia Department. The patient received 2 grams of Ancef. A thigh high tourniquet was placed and all bony prominences were well padded. He was prepped and draped in the usual sterile manner. Limb was elevated, exsanguinated and tourniquet placed at 350 mmHg for approximately 73 minutes. Straight incision is carried down through skin and subcutaneous tissue anteriorly. Hemostasis was controlled via electrocoagulation. After thorough irrigation & debridement, the Quadriceps Tendon was identified and debrided to normal healthy tissue. Next the superior pole of the patella was debrided and decorticated to a good bony bleeding bed. The quadriceps tendon had two #2 Fiberwire sutures placed in modified Krackow fashion producing four limbs. The limbs were passed through the patella longitudinally and tied at the distal pole of the patella. The knee was taken through a range of motion demonstrating good tension and fixation of the quadriceps onto the superior pole of the patella. Next the retinaculum was closed with 0 vicryl. The repair as put through a range of motion from 0-90 degrees without diastasis. Copious irrigation was carried out. Interrupted #2-0 Vicryl was util ized for subcutaneous fat closure and 3-0 Monocryl were placed through the skin. After the skin was clean and dried, an Aquacel dressing was placed, ABDs a nd a compressive dressing with Karl wrap was placed from the foot to the proximal thigh. Tourniquet was dropped at 73 minutes. Digits were warm with normal pulses present at the end of the case. The patient's leg was placed in a hinged brace locked in full extension. Anesthesia was withdrawn and he awoke without complication and was transferred to the recovery room in stable condition.
[2020-04-03] MEDS ORDERED: LORAZEPAM INJ 2 MG/ML VIAL ONE (13:00)
--- NOTE | 2020-04-03 13:11 | NUR ---
VISIT MADE FOR WOUND CARE CONSULT PATIENT IN SURG AT THIS TIME WILL FOLLOW UP TOMORROW Addendum: 04/03/20 at 1312 by Jamie Chris RN Amended: Links added.
[2020-04-03] MEDS ORDERED: HYDROMORPHONE 2MG/ML 2 MG/ML ML ONE (13:14)
[2020-04-03] MEDS ORDERED: DIAZEPAM INJ 5 MG/ML 2 ML IV ONE (13:45)
[2020-04-03] MEDS ORDERED: CEFAZOLIN SOD 1 GM/NS 50ML 100 ML IV SCH (14:00)
[2020-04-03] MEDS ORDERED: ACETAMINOPHEN 1000 MG/100 ML 100 ML IV ONE (14:15)
--- NOTE | 2020-04-03 14:33 | NUR ---
report called from PACU; pt had tendon repair of right quadriceps; immobilizer in place, local sutures, aquacell dressing and candice wrap. Pt's last blood sugar fingerstick 193 at 1226. Pt combative upon awakening, more calm at this time, responds to name, at bedside. Pt received 2 mg Ativan, 1 mg Dilaudid, and 10 mg Valium. Initial temperature 101.6 post-surgery; received Offirmev and repeat temp 100.4, blood pressure 101/91, HR 95 bpm, respirations 20/minute, O2 sat 96% on 3L.
--- NOTE | 2020-04-03 14:45 | NUR ---
pt arrived back to room 103; pt appears sleepy, at bedside. no signs of distress.
[2020-04-03] MEDS ORDERED: ONDANSETRON HCL INJ 2MG/ML 2ML 2 MG/ML VIAL ONE (14:47)
[2020-04-03] MEDS ORDERED: DEXAMETHASONE SOD PHOS INJ 4 MG/ML VIAL ONE (14:47)
[2020-04-03] MEDS ORDERED: LIDOCAINE HCL 2% LOCAL INJ 5 ML SDV VIAL INJ ONE (14:47)
[2020-04-03] MEDS ORDERED: ETOMIDATE 2 MG/ML 10 ML INJ IV ONE (14:47)
[2020-04-03] MEDS ORDERED: LIDOCAINE HCL 2% JELLY 5 ML TUBE ONE (14:47)
[2020-04-03] MEDS ORDERED: ROCURONIUM BROMIDE 10 MG/ML 5ML VIAL IV ONE (14:47)
[2020-04-03] MEDS ORDERED: FENTANYL CITRATE/PF 100MCG/2 ML INJ ONE (14:47)
[2020-04-03] MEDS ORDERED: SEVOFLURANE INHAL SOLN 250 ML PEN BTL ONE (14:47)
[2020-04-03] MEDS ORDERED: MIDAZOLAM HCL 2 MG/2 ML VIAL ONE (14:47)
[2020-04-03] MEDS ORDERED: SUCCINYLCHOLINE CHLORIDE 20 MG/ML 10ML VIAL ONE (14:47)
[2020-04-03] MEDS ORDERED: HYDROCODONE/APAP 5MG-325MG TAB PO PRN (16:00)
[2020-04-03] MEDS: MORPHINE SULFATE INJ 4 MG/ML INJ 1ML IV PRN ×2 (16:13→22:41)
[2020-04-03] MEDS: CEFAZOLIN SOD 2 GM/D5W 50ML 50 ML IV SCH ×2 (16:32→22:23)
[2020-04-03 16:35] VITALS: BP 142/74
--- NOTE | 2020-04-03 16:45 | NUR ---
had long discussion with at bedside. states she cannot help with pt at this time, as she recently had heart surgery. spoke with with talent management manager, Kerri, at bedside. reassured pt will have a sitter at his bedside tonight after she has left. given number to call pt's room and nurses station to check on pt periodically as she desires. agreed with plan.
[2020-04-03] MEDS: ASPIRIN 325 MG TAB PO SCH (17:00)
[2020-04-03] MEDS: ZINC SULFATE 50 MG CAP PO SCH (17:00)
--- NOTE | 2020-04-03 17:57 | NUR ---
pt agitated, c/o pain to right knee s/p surgery. spoke with Dr. Smith; new orders received for pain medications. pt anxious, trying to get out of bed. HR 120's; will administer Ativan per MD order and continue to monitor.
--- NOTE | 2020-04-03 19:00 | NUR ---
bedside shift report given to LENNIE Arango; pt sleeping, no signs of distress. Addendum: 04/03/20 at 1918 by Rogelio Aguilera RN correction- report given to LENNIE Mitchell
[2020-04-03 20:00] VITALS: BP 151/80
[2020-04-03] MEDS: ARIPIPRAZOLE 2 MG TABLET PO SCH (20:29)
[2020-04-03] MEDS: SIMVASTATIN 20 MG TAB PO SCH (20:29)
[2020-04-03] MEDS: HYDROCODONE/APAP 10MG-325MG TAB PO PRN (20:30)
--- NOTE | 2020-04-03 21:00 | NUR ---
Patient continues to remove tele. Education provided to patient that he is in hospital and that it is monitor to monitor HR. Will continue to monitor.
--- NOTE | 2020-04-03 22:00 | NUR ---
Spoke with James PROFESSOR OF PSYCHIATRY regarding patient continue to remove tele after it is reapplied. Continue tele order and monitoring patient.
[2020-04-04] VITALS (9 sets, daily range): BP systolic 116–171; BP diastolic 55–96
[2020-04-04] MEDS: HYDRALAZINE HCL 20 MG/ML VIAL IV PRN (01:32)
[2020-04-04] MEDS: HYDROCODONE/APAP 10MG-325MG TAB PO PRN ×3 (01:33→20:39)
[2020-04-04] MEDS: MORPHINE SULFATE INJ 4 MG/ML INJ 1ML IV PRN (03:35)
[2020-04-04] MEDS: LORAZEPAM INJ 2 MG/ML VIAL IV PRN ×2 (04:31→22:15)
--- NOTE | 2020-04-04 04:32 | NUR ---
Tele reapplied, patient continues to remove tele.
[2020-04-04] MEDS: LEVOTHYROXINE SODIUM 100 MCG TAB PO SCH (05:07)
[2020-04-04] MEDS: CEFAZOLIN SOD 2 GM/D5W 50ML 50 ML IV SCH (05:07)
[2020-04-04] MEDS: SODIUM CHLORIDE 0.9% 1000ML 1,000 ML IV SCH ×2 (05:07→20:34)
[2020-04-04 05:25] LABS: BASOPHILS % 0.2 % (0.0-1.0); EOSINOPHILS % 0.2 % (0.0-6.0); HEMATOCRIT 38.3 % (38.2-49.6); HEMOGLOBIN 12.3 g/dL (14.0-18.0); LYMPHOCYTES # (AUTO) 2.6 (1.0-3.2); LYMPHOCYTES % 14.5 % (18.0-39.1); MEAN CORPUSCULAR HEMOGLOBIN 29.4 pg (28-32); MEAN CORPUSCULAR HGB CONC 32.1 g/dL (31-35); MEAN CORPUSCULAR VOLUME 91.4 fL (81-99); MONOCYTES # (AUTO) 2.7 (0.2-0.8); MONOCYTES % 15.4 % (4.4-11.3); NEUTROPHILS # (AUTO) 12.2 (2.1-6.9); NEUTROPHILS % 69.3 % (38.7-80.0); PLATELET COUNT 203 x10e3/uL (140-360); RED BLOOD COUNT 4.19 x10e6/uL (4.3-5.7); RED CELL DISTRIBUTION WIDTH 13.9 % (11.7-14.4)
[2020-04-04 05:59] LABS: ANION GAP 14.4 mmol/L (8-16); CALCIUM 9.1 mg/dL (8.4-10.2); CREATININE, SERUM 1.26 mg/dL (0.72-1.25); MAGNESIUM 1.6 MG/DL (1.3-2.1); POTASSIUM 4.4 mmol/L (3.5-5.1)
[2020-04-04] MEDS ORDERED: ONDANSETRON HCL 4 MG ORAL DISINTEGRATING TAB PO PRN (06:45)
[2020-04-04] MEDS ORDERED: KETOROLAC TROMETHAMINE 30 MG/ML VIAL IV PRN (06:45)
--- NOTE | 2020-04-04 07:10 | NUR ---
Bedside report and walking rounds completed with oncoming nurse. Patient in bed with call light within reach. No issues or concerns noted.
[2020-04-04] MEDS: FAMOTIDINE 20 MG TAB PO SCH ×2 (07:30→16:04)
--- NOTE | 2020-04-04 08:00 | NUR ---
INITIAL ASSESSMENT COMPLETE, PT IN BED, WITH SITTER AT BEDSIDE, PT DOES HAVE A TEMP, COVID PENDING, IMMOBILIZER ON PT RIGHT KNEE, DRESSING INTACT, NO PAIN NOTED AT THIS TIME, IV INFUSING, PT IS COOPERATIVE AT THIS TIME, FOLLOWS INSTRUCTIONS. CALL LIGHT IN REACH, CONTINUE TO MONITOR, PT WILL NOT LEAVE TELE ON, CONTINUE TO ENCOURAGE USAGE OF IT.
[2020-04-04] MEDS: ZINC SULFATE 50 MG CAP PO SCH ×2 (09:00→17:00)
[2020-04-04] MEDS: VENLAFAXINE HCL 100 MG PO SCH (09:00)
[2020-04-04] MEDS: LORATADINE 10 MG TAB PO SCH (09:00)
[2020-04-04] MEDS: ASCORBIC ACID 500 MG TAB PO SCH ×2 (09:00→17:00)
[2020-04-04] MEDS: FLUTICASONE PROPIONATE NASAL SPRAY NS SCH (09:00)
[2020-04-04] MEDS: LISINOPRIL 20 MG TAB PO SCH (09:00)
[2020-04-04] MEDS: SPIRONOLACTONE 25 MG TAB PO SCH (09:00)
[2020-04-04] MEDS: OYST-CAL-D 500MG TABLET PO SCH ×2 (09:00→17:00)
[2020-04-04] MEDS: CYANOCOBALAMIN 1,000 MCG TAB PO SCH (09:00)
[2020-04-04] MEDS: MAGNESIUM OXIDE 400 MG TAB PO SCH ×2 (09:00→17:00)
[2020-04-04] MEDS: ASPIRIN 325 MG TAB PO SCH ×2 (09:00→17:00)
--- NOTE | 2020-04-04 09:02 | NUR ---
DISCHARGE ASSESSMENT COMPLETE, PT WHEELED OUT VIA WHEEL CHAIR, TO PRIVATE VEHICLE, TO HOME, DISCHARGE INSTRUCTIONS GIVEN, PRESCRIPTIONS GIVEN, COPIES TO CHART Addendum: 04/04/20 at 0905 by Rin Montiel RN ENTERED IN ERROR
--- NOTE | 2020-04-04 09:30 | NUR ---
MEDICATIONS GIVEN, DR REINA HERE TO SEE PT, VS WNL, CONTINUE TO MONITOR
[2020-04-04] MEDS: MULTIVITAMINS/MINERALS TAB PO SCH (09:48)
[2020-04-04] MEDS ORDERED: SODIUM CHLORIDE 0.9% 1000ML 1,000 ML IV ONE (12:00)
--- NOTE | 2020-04-04 12:00 | NUR ---
VS STABLE, PT UP TO CHAIR FOR LUNCH, ABLE TO STAY IN THE CHAIR, SITTER CHANGED TO PRN, WILL CONTINUE TO MONITOR PT
--- NOTE | 2020-04-04 13:17 | NUR ---
WOUND CARE FOLLOW UP PATIENT POST SURGICAL DRESSING AND ORDERS IN PLACE NURSING TO RECONSULT WOUND CARE IF ANY FURTHER YOBANY MAY OCCUR Addendum: 04/04/20 at 1318 by Jamie Chris RN Amended: Links added.
[2020-04-04] MEDS: ACETAMINOPHEN 325 MG TAB PO PRN (14:45)
[2020-04-04] MEDS: TRAMADOL HCL 50 MG TAB PO PRN (16:04)
--- NOTE | 2020-04-04 17:00 | NUR ---
PT UP TO CHAIR FOR DINNER, NO DISTRESS NOTED, IV INFUSING, CALL LIGHT IN REACH
--- NOTE | 2020-04-04 18:27 | NUR ---
PT IN CHAIR, GOWN CHANGED, CALL LIGHT IN REACH, MORE COMFORTABLE SITTING IN RECLINER, COOPERATIVE ATTITUDE
--- NOTE | 2020-04-04 19:15 | NUR ---
PATIENT RECEIVED AT BED SIDE REPORT. PATIENT IS RESTING IN RECLINER. RESP EVEN AND UNLABORED. NO DISTRESS NOTED AT THIS TIME. SITTER AT BED SIDE. CALL LIGHT WITHIN REACH. INSTRUCT TO CALL FOR ASSISTANCE. BED LOW/LOCKED. SIDE RAIL UP X2. CONTINUE TO MONITOR CLOSELY
[2020-04-04] MEDS: ARIPIPRAZOLE 2 MG TABLET PO SCH (20:34)
[2020-04-04] MEDS: SIMVASTATIN 20 MG TAB PO SCH (20:34)
[2020-04-05] VITALS (9 sets, daily range): BP systolic 107–163; BP diastolic 57–88
[2020-04-05] MEDS: HYDRALAZINE HCL 20 MG/ML VIAL IV PRN (00:02)
[2020-04-05] MEDS: ZOLPIDEM TARTRATE 10 MG TAB PO PRN (00:35)
[2020-04-05] MEDS: TRAMADOL HCL 50 MG TAB PO PRN (00:36)
[2020-04-05] MEDS: SODIUM CHLORIDE 0.9% 1000ML 1,000 ML IV SCH (00:57)
--- NOTE | 2020-04-05 01:26 | Progress Note ---
DATE: 04/04/2020 CONSULTING PHYSICIANS: 1. Brianna Gregorio MD, with Psychiatry. 2. Broderick Avitia MD, with Cardiology. 3. Ra Parsons MD. 4. Luis Escalera DO with Orthopedic Surgery. SUBJECTIVE: The patient is lying supine in bed, is asleep, is easily arousable. Has pain in the right knee off and on. Currently 6/10 on 0-10 pain scale. According to the one-to-one sitter, who is currently at the bedside, he has been going back and forth from the recliner to the bed. Apparently, he did not sleep at all last night. Denies fever, chills, headache, dizziness, sore throat, trouble swallowing, shortness of breath, cough, phlegm, chest pain, palpitations, nausea, vomiting, diarrhea, or constipation. OBJECTIVE: VITAL SIGNS: Currently, temperature 98.6, heart rate 133, respirations 18, and oxygen saturation 96% on 1 L of oxygen via nasal cannula. T-max 101.3. GENERAL: Supine, asleep, easily arousable with signs of obstructive sleep apnea. LUNGS: Generally clear to auscultation. Respiratory pattern of sleep apnea. Diminished in the bases. HEENT: EOMI. NECK: Supple. CARDIOVASCULAR: Regular rate and rhythm. No murmur. Normal saline at 100 mL an hour through a peripheral IV. ABDOMEN: Bowel sounds positive. Soft, obese, nontender, and nondistended. No guarding. EXTREMITIES: No pitting edema. No clubbing, cyanosis, or marked swelling. No signs or symptoms of DVT. NEUROLOGICAL: GCS 13-15. Eyes 3, verbal 3, motor 6. Confused. Sitter at bedside. LABORATORY DATA: WBC 17.62, hemoglobin 12.3, hematocrit 38.3, platelets 203. Sodium 137, potassium 4.4, chloride 103, CO2 24, BUN 18 and creatinine 1.26, estimated GFR 57, glucose 125. Fingerstick blood glucose levels today 133, 113, 162, 145. Uric acid level 7.4, calcium 9.1, magnesium level 1.6. Coronavirus PCR collected on 03/28/2020 at 8:33 a.m. in the morning, remains pending. Final urine culture on 04/01, without growth. On 04/04, blood cultures x2 collected with results pending. Per telemetry, sinus tachycardia with a heart rate of 144 at 4:00 a.m. ASSESSMENT AND PLAN: 1. Status post mechanical fall on 04/01/2020, right knee pain, right knee quadriceps tendon rupture, right patellar dislocation, right index finger laceration, now status post right quadriceps tendon repair on 04/04/2020, by Dr. Smith, ambulatory dysfunction. Surgeon continues to follow. Knee immobilizer is in place. Continue pain control. Continue wound healing medications. The patient's seemed to be over sedated this morning. Ativan changed to oral from IV. Morphine was discontinued, [place], and Toradol. Continue one-to-one sitter changed to p.r.n. 2. Acute kidney injury. Creatinine 1.26, previously 1.3, improving. Continue IV fluids. Normal saline 100 mL an hour. Monitor renal labs. 3. Systemic inflammatory response syndrome versus sepsis versus reactive to fall. WBCs 17.6, an increasing upward trend noted. Lactic acid 1.7 today. Previously, WBCs 15.7. UA was negative. Chest x-ray was negative. Reassess WBC in a.m. continue IV fluids. 4. Anxiety/depression with panic attacks with chronic tachycardia, altered mental status, etiology could be from over-sedation versus sleep deprivation versus leukocytosis. Psychiatry has been consulted. Pain medications adjusted. Appreciate recommendations from Psychiatry. Cardiology continues to follow. No new recommendations regarding tachycardia or otherwise. 5. Uncontrolled hypertension. Blood pressure 116/56 earlier this morning. This is gradually increased. Currently, 171/96 with a heart rate of 133. Continue antihypertensives. Appreciate recommendations from Cardiology. 6. Controlled type 2 diabetes mellitus. Hemoglobin A1c 6.3%. Currently on a renal ADA diet. Fingerstick blood glucose levels stable, 113 to 162 today. 7. Obstructive sleep apnea. The patient admits to a history of obstructive sleep apnea. Does not use BiPAP at night. Monitor closely. One-to-one sitter aware. 8. Acute hypomagnesemia. Magnesium level 1.6. Monitor. 9. Morbid obesity with BMI of about 40. Dietary restrictions. 10. Prophylaxis, Pepcid. Time spent 35 minutes. Dictated by James Sharif NP MD CHRISTY Anguiano/AJITL /[id number]
--- NOTE | 2020-04-05 01:57 | NUR ---
PATIENT IS VERY CONFUSE AND RESTLESS, MED GIVEN PER MAR
[2020-04-05] MEDS: ACETAMINOPHEN 325 MG TAB PO PRN (04:30)
[2020-04-05] MEDS: TRAZODONE HCL 50 MG TAB PO PRN (04:30)
[2020-04-05] MEDS: BENZONATATE 100 MG CAP PO SCH ×3 (04:40→21:47)
[2020-04-05] MEDS: LORAZEPAM INJ 2 MG/ML VIAL IV PRN (05:14)
[2020-04-05] MEDS: LEVOTHYROXINE SODIUM 100 MCG TAB PO SCH (05:14)
[2020-04-05 05:21] LABS: BASOPHILS % 0.3 % (0.0-1.0); EOSINOPHILS # (AUTO) 0.1 (0.0-0.4); EOSINOPHILS % 0.6 % (0.0-6.0); HEMATOCRIT 35.2 % (38.2-49.6); HEMOGLOBIN 11.5 g/dL (14.0-18.0); LYMPHOCYTES # (AUTO) 1.9 (1.0-3.2); LYMPHOCYTES % 12.1 % (18.0-39.1); MEAN CORPUSCULAR HEMOGLOBIN 29.3 pg (28-32); MEAN CORPUSCULAR HGB CONC 32.7 g/dL (31-35); MEAN CORPUSCULAR VOLUME 89.8 fL (81-99); MONOCYTES % 12.8 % (4.4-11.3); NEUTROPHILS # (AUTO) 11.5 (2.1-6.9); NEUTROPHILS % 73.6 % (38.7-80.0); PLATELET COUNT 190 x10e3/uL (140-360); RED BLOOD COUNT 3.92 x10e6/uL (4.3-5.7)
[2020-04-05 05:32] LABS: AMMONIA 68 UG/DL (31-123)
[2020-04-05 05:46] LABS: ALANINE AMINOTRANSFERASE 30 IU/L (0-55); ALBUMIN 3.3 g/dL (3.5-5.0); ALBUMIN/GLOBULIN RATIO 0.9 (0.8-2.0); ALKALINE PHOSPHATASE 57 IU/L (40-150); ANION GAP 16.3 mmol/L (8-16); BLOOD UREA NITROGEN 16 mg/dL (7-26); BUN/CREATININE RATIO 15 (6-25); CALCIUM 9.5 mg/dL (8.4-10.2); CARBON DIOXIDE 21 mmol/L (22-29); CHLORIDE 103 mmol/L (98-107); CREATININE, SERUM 1.08 mg/dL (0.72-1.25); EST GLOMERULAR FILTRATION RATE > 60 ML/MIN (60-); GLUCOSE 122 mg/dL (74-118); MAGNESIUM 1.8 MG/DL (1.3-2.1); PHOSPHORUS 2.3 MG/DL (2.3-4.7); POTASSIUM 4.3 mmol/L (3.5-5.1); SODIUM 136 mmol/L (136-145)
[2020-04-05 06:11] LABS: B-TYPE NATRIURETIC PEPTIDE2 < 10.0 pg/mL (0-100)
[2020-04-05] MEDS ORDERED: METOPROLOL TARTRATE INJ 1 MG/ML VIAL IV PRN (08:45)
[2020-04-05] MEDS: VENLAFAXINE HCL 100 MG PO SCH (09:00)
[2020-04-05] MEDS: CYANOCOBALAMIN 1,000 MCG TAB PO SCH (09:02)
[2020-04-05] MEDS: MULTIVITAMINS/MINERALS TAB PO SCH (09:02)
[2020-04-05] MEDS: ASCORBIC ACID 500 MG TAB PO SCH ×2 (09:02→17:00)
[2020-04-05] MEDS: LORATADINE 10 MG TAB PO SCH (09:02)
[2020-04-05] MEDS: MAGNESIUM OXIDE 400 MG TAB PO SCH ×2 (09:02→17:00)
[2020-04-05] MEDS: SPIRONOLACTONE 25 MG TAB PO SCH (09:02)
[2020-04-05] MEDS: OYST-CAL-D 500MG TABLET PO SCH ×2 (09:02→17:00)
[2020-04-05] MEDS: FLUTICASONE PROPIONATE NASAL SPRAY NS SCH (09:02)
[2020-04-05] MEDS: ASPIRIN 325 MG TAB PO SCH ×2 (09:02→17:00)
[2020-04-05] MEDS: ZINC SULFATE 50 MG CAP PO SCH ×2 (09:03→17:00)
[2020-04-05] MEDS: LISINOPRIL 20 MG TAB PO SCH (09:06)
[2020-04-05] MEDS: FAMOTIDINE 20 MG TAB PO SCH ×2 (09:07→16:30)
[2020-04-05] MEDS ORDERED: CEFTRIAXONE SOD 1 GM/NS 50 ML 50 ML IV SCH (09:15)
[2020-04-05] MEDS ORDERED: AZITHROMYCIN 500MG/NS 250 ML 250 ML IV SCH (10:00)
--- NOTE | 2020-04-05 10:22 | Diagnostic Imaging Report ---
EXAMINATION: Head CT HISTORY: Confusion COMPARISON: None. TECHNIQUE: Helical axial images of the head were obtained. Reformatted coronal and sagittal images from the axial data. Dose modulation, iterative reconstruction, and/or weight based adjustment of the mA/kV was utilized to reduce the radiation dose to as low as reasonably achievable. Image quality: Motion/streaking artifact limits the evaluation of the skull base and posterior cranial fossa. FINDINGS: Parenchyma: 1. No abnormal densities. 2. No mass or hemorrhage. No CT evidence of acute territorial vascular insult. Extra-axial spaces:No abnormal density. No extra-axial fluid collections Brain volume: Normal for age. Ventricles: No hydrocephalus or displacement. Arteries: No density suggestive of thrombus. Dural sinuses: No abnormal density. Foramen magnum: No mass, Chiari malformation, or basilar invagination. Sella: No obvious mass. Paranasal/mastoid sinuses: Imaged portions unremarkable. Skull/Scalp: No lytic or blastic lesions. No fractures. IMPRESSION: No intracranial abnormalities. Signed by: Dr. Mariam Leigh M.D. on 04/05/2020 10:19 AM
[2020-04-05] MEDS ORDERED: TRAZODONE HCL 50 MG TAB PO PRN (10:30)
[2020-04-05] MEDS ORDERED: MAGNESIUM HYDROXIDE 30 ML UDC PO ONE (10:30)
--- NOTE | 2020-04-05 10:53 | NUR ---
PETEY DISCONTINUED THIS AM. AT BEDSIDE. IV SITE TO LEFT SHOULDER BRUISING, RE,FLORIDALMA, NEW IV SITE STARTED TO LEFT ARM 20 G. PT TOLERATED WELL. ATTEMPTING TO TAKE A NAP IN NO APPARENT DISTRESS
[2020-04-05] MEDS ORDERED: VENLAFAXINE HCL 75 MG TAB PO SCH (11:00)
--- NOTE | 2020-04-05 12:13 | Diagnostic Imaging Report ---
EXAM: CT Chest WITHOUT intravenous contrast 04/05/2020 9:30 AM INDICATION: Pneumonia COMPARISON: Chest radiograph 04/01/2020 TECHNIQUE: Chest was scanned utilizing a multidetector helical scanner from the lung apex through the level of the adrenal glands without administration of IV contrast. Coronal and sagittal reformations were obtained. Routine protocol was performed. IV CONTRAST: None RADIATION DOSE: Total DLP: 484 mGy*cm. Dose modulation, iterative reconstruction, and/or weight based adjustment of the mA/kV was utilized to reduce the radiation dose to as low as reasonably achievable. COMPLICATIONS: None FINDINGS: LINES/ TUBES: None. LUNGS AND AIRWAYS: The central airways are patent. No focal pneumonia or pulmonary edema. PLEURA: The pleural spaces are clear. HEART AND MEDIASTINUM: Thyroid gland incompletely visualized. No supraclavicular, axillary, mediastinal, or hilar lymphadenopathy. The heart is not enlarged. No pericardial effusion. Scattered atherosclerotic calcifications of the thoracic aorta and coronary arteries. UPPER ABDOMEN: Cholelithiasis without CT evidence of cholecystitis. No additional acute findings in the upper abdomen. BONES: The visualized bony thorax is within normal limits. SOFT TISSUES: Unremarkable. IMPRESSION: No focal pneumonia or pulmonary edema. Cholelithiasis. Signed by: Tone Read MD on 04/05/2020 12:10 PM
--- NOTE | 2020-04-05 16:01 | NUR ---
ORDERS FOR ACUTE REHAB DISCUSSED WITH PT AND (ON SPEAKER PHONE) BOTH AGREE WITH [facility] CLINICAL INFORMATION FAXED TO [facility] AT [phone] AWAIT COVID RESULTS
[2020-04-05] MEDS: DOCUSATE SODIUM 100 MG CAP PO SCH (17:00)
--- NOTE | 2020-04-05 19:10 | NUR ---
Patient visited in room during nursing rounds. Patient alert and oriented x1. Pt appear very confused as evidenced by frequent attempts to get up and out of bed. Pt also frequently rips off telemetry leads. Pt has sitter in room (1:1 care) for safety reasons. Pt s/p right quadriceps repair and has dressing with candice wrap from right knee all the way down to right ankle with right leg immobilizer. Bed alarm active. Call santos within reach. Will monitor closely.
[2020-04-05] MEDS: SIMVASTATIN 20 MG TAB PO SCH (21:47)
[2020-04-05] MEDS: MELATONIN 5 MG TABLET PO SCH (21:47)
[2020-04-05] MEDS: TRAZODONE HCL 50 MG TAB PO SCH (21:47)
--- NOTE | 2020-04-05 22:35 | Consultation ---
DATE OF CONSULTATION: 04/05/2020 Psychiatric Consultation HISTORY OF PRESENT ILLNESS: The patient evaluated and events noted. The patient is in the room with the . He is alert, awake, and oriented to situation. He knows where he is, but does not know the current year. Voice is raspy. He is calm at the time of assessment. He does not know why he is in the hospital. He denies any depression. Denies any anxiety. He complains of not sleeping well at night. Denies any appetite problems. Denies any hallucination. Denies any suicidal or homicidal ideation. As per the , the patient is depressed. She thinks this is due to his health issues. The patient sees providers at [facility], but the thinks the patient needs more therapist to talk to him more often. The patient takes medication for anxiety and depression, but having very poor sleep. He has been confused for the last 3 or 4 days, especially after his surgery, where he received general anesthesia. At night time, he tried to get out of bed and generally more confused in the daytime. PAST PSYCHIATRIC HISTORY: The patient has history of anxiety and depression. He has never attempted suicide in the past. He does not drink alcohol or use any drugs. FAMILY HISTORY: Denies. SOCIAL HISTORY: The patient lives with the . MENTAL STATUS EXAM: The patient is elderly male. He is alert, awake, and oriented to self and situation. His mood is anxious. Affect is blunt. Psychomotor state is passive. Denies suicidal or homicidal ideation. Denies any hallucination. Thought process is concrete. No delusion elicited. Insight and judgment are fair. Memory appears to be grossly impaired. CURRENT MEDICATIONS: 1. Benzonatate. 2. Azithromycin. 3. Ceftriaxone. 4. Pepcid. 5. Lisinopril. 6. Zinc. 7. Aspirin. 8. Vitamin C. 9. Magnesium oxide. 10. Calcium carbonate. 11. Multivitamin. 12. Spironolactone. 13. Vitamin B12. 14. Flonase. 15. Claritin. 16. Tylenol. 17. Tramadol p.r.n. 18. [place] p.r.n. 19. Zocor. 20. Toradol. 21. Synthroid. 22. Trazodone 200 mg p.o. at bedtime as needed. 23. Ambien 10 mg p.o. at bedtime as needed. 24. Abilify 2 mg p.o. at bedtime. 25. Metoprolol. 26. Colace. 27. Ondansetron. 28. Phenergan. 29. Effexor home medication 100 mg p.o. daily. LABORATORY DATA: WBC 15.65, RBC 3.92, hemoglobin 11.5, hematocrit 35.2, platelets 190. Sodium 136, potassium 4.3, chloride 103, CO2 of 21, BUN 16, creatinine 1.08. AST 44, ALT 30. ASSESSMENT: 1. Unspecified psychosis/delirium, multifactorial. 2. Adjustment disorder, mixed mood. 3. History of anxiety and depression. PLAN: 1. Add melatonin 5 mg p.o. at bedtime. 2. Discontinue Abilify. 3. Discontinue Ambien p.r.n. 4. Reduce trazodone 200 mg p.o. at bedtime p.r.n. to 100 mg p.o. at bedtime p.r.n. 5. Add trazodone 100 mg p.o. at bedtime schedule. 6. Add Seroquel 25 mg p.o. q.6 hours as needed. 7. Discontinue Effexor as patient is not getting this while in the hospital. 8. Monitor for agitation, psychosis. 9. Discussed with family members. Thank you for this consultation. Dictated by Beryl Linares PA-C Brianna Gregorio MD QTV/MODL /[id number]
[2020-04-05] MEDS: QUETIAPINE FUMARATE 25 MG TAB PO PRN (22:41)
--- NOTE | 2020-04-05 23:00 | NUR ---
Nurse (Sea) spoke with patient's (Erlinda) and informed about patient current condition. aware that pt is confused and is in need of 1:1 sitter care at this time.
[2020-04-06] VITALS (8 sets, daily range): BP systolic 97–128; BP diastolic 62–80
[2020-04-06] MEDS: ACETAMINOPHEN 325 MG TAB PO PRN (00:39)
[2020-04-06 05:47] LABS: BASOPHILS % 0.3 % (0.0-1.0); EOSINOPHILS # (AUTO) 0.1 (0.0-0.4); EOSINOPHILS % 0.5 % (0.0-6.0); HEMATOCRIT 32.6 % (38.2-49.6); HEMOGLOBIN 10.8 g/dL (14.0-18.0); LYMPHOCYTES # (AUTO) 1.7 (1.0-3.2); LYMPHOCYTES % 13.2 % (18.0-39.1); MEAN CORPUSCULAR HEMOGLOBIN 30.1 pg (28-32); MEAN CORPUSCULAR HGB CONC 33.1 g/dL (31-35); MEAN CORPUSCULAR VOLUME 90.8 fL (81-99); MONOCYTES # (AUTO) 1.5 (0.2-0.8); MONOCYTES % 11.7 % (4.4-11.3); NEUTROPHILS # (AUTO) 9.4 (2.1-6.9); PLATELET COUNT 207 x10e3/uL (140-360); RED BLOOD COUNT 3.59 x10e6/uL (4.3-5.7); RED CELL DISTRIBUTION WIDTH 13.8 % (11.7-14.4)
[2020-04-06 06:03] LABS: ALANINE AMINOTRANSFERASE 37 IU/L (0-55); ALBUMIN 3.1 g/dL (3.5-5.0); ALBUMIN/GLOBULIN RATIO 0.9 (0.8-2.0); ALKALINE PHOSPHATASE 51 IU/L (40-150); ANION GAP 15.1 mmol/L (8-16); BLOOD UREA NITROGEN 11 mg/dL (7-26); BUN/CREATININE RATIO 11 (6-25); CARBON DIOXIDE 23 mmol/L (22-29); CHLORIDE 104 mmol/L (98-107); CREATININE, SERUM 1.01 mg/dL (0.72-1.25); EST GLOMERULAR FILTRATION RATE > 60 ML/MIN (60-); GLUCOSE 126 mg/dL (74-118); POTASSIUM 4.1 mmol/L (3.5-5.1); SODIUM 138 mmol/L (136-145)
[2020-04-06] MEDS: LEVOTHYROXINE SODIUM 100 MCG TAB PO SCH (06:35)
[2020-04-06] MEDS: FAMOTIDINE 20 MG TAB PO SCH ×2 (06:35→16:45)
[2020-04-06] MEDS: FLUTICASONE PROPIONATE NASAL SPRAY NS SCH (09:00)
[2020-04-06] MEDS: LISINOPRIL 20 MG TAB PO SCH (09:00)
--- NOTE | 2020-04-06 09:09 | NUR ---
AWAITING COVID RESULTS TO TRANSFER PT TO [facility]
[2020-04-06] MEDS: DOCUSATE SODIUM 100 MG CAP PO SCH ×2 (09:57→16:45)
[2020-04-06] MEDS: MAGNESIUM OXIDE 400 MG TAB PO SCH ×2 (09:57→16:45)
[2020-04-06] MEDS: BENZONATATE 100 MG CAP PO SCH ×3 (09:57→20:30)
[2020-04-06] MEDS: SPIRONOLACTONE 25 MG TAB PO SCH (09:57)
[2020-04-06] MEDS: ZINC SULFATE 50 MG CAP PO SCH ×2 (09:57→16:45)
[2020-04-06] MEDS: CYANOCOBALAMIN 1,000 MCG TAB PO SCH (09:57)
[2020-04-06] MEDS: LORATADINE 10 MG TAB PO SCH (09:57)
[2020-04-06] MEDS: MULTIVITAMINS/MINERALS TAB PO SCH (09:57)
[2020-04-06] MEDS: ASPIRIN 325 MG TAB PO SCH ×2 (09:57→16:45)
[2020-04-06] MEDS: ASCORBIC ACID 500 MG TAB PO SCH ×2 (09:57→16:45)
[2020-04-06] MEDS: OYST-CAL-D 500MG TABLET PO SCH ×2 (09:57→16:45)
[2020-04-06] MEDS: QUETIAPINE FUMARATE 25 MG TAB PO PRN (09:59)
[2020-04-06] MEDS ORDERED: HALOPERIDOL LACTATE 5 MG/ML VIAL IM PRN (10:15)
--- NOTE | 2020-04-06 19:10 | NUR ---
Patient visited in room during nursing rounds. Patient alert and oriented x1. Pt appear very confused as evidenced by frequent attempts to get up and out of bed. Hospital Executive Vice President Of Sales (Obdulia Nye) stated there are no available staff that could sit with patient tonight. Primary nurse (Sea) plans to stay and watch patient in room often througout the shift. Pt s/p right quadriceps repair and has dressing on the surgical incision on right knee. Right leg supported with leg immobilizer. Bed alarm active. Call santos within reach. Will monitor closely.
[2020-04-06] MEDS: SIMVASTATIN 20 MG TAB PO SCH (20:30)
[2020-04-06] MEDS: TRAZODONE HCL 50 MG TAB PO SCH (20:30)
[2020-04-06] MEDS: MELATONIN 5 MG TABLET PO SCH (20:30)
[2020-04-06] MEDS ORDERED: QUETIAPINE FUMARATE 25 MG TAB PO SCH (21:00)
--- NOTE | 2020-04-06 22:00 | NUR ---
Patient asleep in bed at this time. Pt appear very calm and does not display any aggressive behavior.
[2020-04-07] VITALS: BP 122/74
--- NOTE | 2020-04-07 | NUR ---
Patient stayed in bed but keeps tossing and turning and seem quite anxious. Pt to be given another dose of Seroquel.
[2020-04-07] MEDS: QUETIAPINE FUMARATE 25 MG TAB PO PRN ×2 (00:14→08:30)
[2020-04-07] MEDS: HYDROCODONE/APAP 10MG-325MG TAB PO PRN ×3 (02:30→13:44)
--- NOTE | 2020-04-07 03:00 | NUR ---
Pt finally asleep and appear comfortable at this time.
--- NOTE | 2020-04-07 04:30 | NUR ---
Pt woken up by ER nurse to perform COVID test. Both nares were irritated bad and resulted to nose bleed. Nose and was cleaned up and bloodied pillow case changed.
--- NOTE | 2020-04-07 05:00 | NUR ---
Nurse (Sea) spoke with patient's (Erlinda Mosquera) and informed about patient's condition. aware and appreciated the care her got from nurse and staff.
[2020-04-07] MEDS: TRAMADOL HCL 50 MG TAB PO PRN ×2 (05:24→11:50)
[2020-04-07 05:53] LABS: BASOPHILS # (AUTO) 0.1 (0.0-0.1); BASOPHILS % 0.4 % (0.0-1.0); EOSINOPHILS # (AUTO) 0.2 (0.0-0.4); EOSINOPHILS % 2.1 % (0.0-6.0); HEMATOCRIT 32.1 % (38.2-49.6); HEMOGLOBIN 10.4 g/dL (14.0-18.0); LYMPHOCYTES # (AUTO) 2.2 (1.0-3.2); LYMPHOCYTES % 19.2 % (18.0-39.1); MEAN CORPUSCULAR HEMOGLOBIN 28.9 pg (28-32); MEAN CORPUSCULAR HGB CONC 32.4 g/dL (31-35); MEAN CORPUSCULAR VOLUME 89.2 fL (81-99); MONOCYTES # (AUTO) 1.3 (0.2-0.8); MONOCYTES % 11.1 % (4.4-11.3); NEUTROPHILS # (AUTO) 7.8 (2.1-6.9); NEUTROPHILS % 66.9 % (38.7-80.0); PLATELET COUNT 257 x10e3/uL (140-360); RED CELL DISTRIBUTION WIDTH 13.8 % (11.7-14.4)
[2020-04-07] MEDS: FAMOTIDINE 20 MG TAB PO SCH (06:35)
[2020-04-07] MEDS: LEVOTHYROXINE SODIUM 100 MCG TAB PO SCH (06:35)
[2020-04-07 06:48] LABS: ALANINE AMINOTRANSFERASE 50 IU/L (0-55); ALBUMIN/GLOBULIN RATIO 0.8 (0.8-2.0); ALKALINE PHOSPHATASE 58 IU/L (40-150); BLOOD UREA NITROGEN 18 mg/dL (7-26); BUN/CREATININE RATIO 17 (6-25); CALCIUM 9.4 mg/dL (8.4-10.2); CARBON DIOXIDE 25 mmol/L (22-29); CHLORIDE 104 mmol/L (98-107); CREATININE, SERUM 1.07 mg/dL (0.72-1.25); EST GLOMERULAR FILTRATION RATE > 60 ML/MIN (60-); GLUCOSE 108 mg/dL (74-118); SODIUM 140 mmol/L (136-145)
[2020-04-07 08:00] VITALS: BP 129/76
[2020-04-07] MEDS: MULTIVITAMINS/MINERALS TAB PO SCH (08:29)
[2020-04-07] MEDS: DOCUSATE SODIUM 100 MG CAP PO SCH (08:29)
[2020-04-07] MEDS: LORATADINE 10 MG TAB PO SCH (08:29)
[2020-04-07] MEDS: ZINC SULFATE 50 MG CAP PO SCH (08:29)
[2020-04-07] MEDS: ASPIRIN 325 MG TAB PO SCH (08:29)
[2020-04-07] MEDS: LISINOPRIL 20 MG TAB PO SCH (08:29)
[2020-04-07] MEDS: ASCORBIC ACID 500 MG TAB PO SCH (08:29)
[2020-04-07] MEDS: FLUTICASONE PROPIONATE NASAL SPRAY NS SCH (08:29)
[2020-04-07] MEDS: OYST-CAL-D 500MG TABLET PO SCH (08:29)
[2020-04-07] MEDS: SPIRONOLACTONE 25 MG TAB PO SCH (08:29)
[2020-04-07] MEDS: MAGNESIUM OXIDE 400 MG TAB PO SCH (08:29)
[2020-04-07] MEDS: CYANOCOBALAMIN 1,000 MCG TAB PO SCH (08:29)
[2020-04-07] MEDS: BENZONATATE 100 MG CAP PO SCH (08:29)
[2020-04-07] MEDS: ACETAMINOPHEN 325 MG TAB PO PRN (08:30)
--- NOTE | 2020-04-07 09:09 | NUR ---
COVID NEGATIVE RESULTS AND CLINICAL UPDATE FAXED TO JR AT [facility] AWAIT MOT
[2020-04-07 12:00] VITALS: BP 96/58
--- NOTE | 2020-04-07 14:27 | NUR ---
Patient transferred to [facility] at 1421. Report was given at 1250. All medication reconilation and h&p reports sent to [facility]. LENNIE Guan had no other questions. Patient left via EMS at 1421.
--- NOTE | 2020-04-08 18:39 | Discharge Summary ---
ADMISSION DIAGNOSES: 1. Mechanical fall with right quadriceps muscle rupture. 2. Acute kidney injury. 3. Tachycardia. 4. Anxiety and depression with history of panic attacks. 5. Hypothyroidism. 6. Hypertension. 7. Type 2 diabetes. 8. Hyperlipidemia. 9. Restless legs syndrome. 10. Morbid obesity with a BMI of 39.7. DISCHARGE DIAGNOSES: 1. Mechanical fall with right quadriceps muscle rupture. 2. Acute kidney injury. 3. Tachycardia. 4. Anxiety and depression with history of panic attacks. 5. Hypothyroidism. 6. Hypertension. 7. Type 2 diabetes. 8. Hyperlipidemia. 9. Restless legs syndrome. 10. Morbid obesity with a BMI of 39.7. 11. Rule out sepsis. 12. Rule out pneumonia. 13. Rule out urinary tract infection. 14. Rule out bacteremia. MEDICAL HISTORY: Hypertension, type 2 diabetes, anxiety, depression, hypothyroidism, GERD, hyperlipidemia, RLS, chronic back pain, insomnia, panic attacks. SURGICAL HISTORY: T and A. FAMILY HISTORY: The patient's mom had diabetes and the patient's mother and father both had cancer. SOCIAL HISTORY: Noncontributory. HOSPITAL COURSE: A 64-year-old male, fell at home, tripping on a basket of clothes where he sustained a right knee injury. He has lost 6 family members in the past year and takes care of his at home. Thus, he has significant anxiety. On admission, chest x-ray was negative. Knee x-ray showed no acute displaced fracture or dislocation, moderate suprapatellar effusion. Multiple rounded and elongated calcific fragments projecting into the soft tissues at the level of the effusion are indeterminate. Ortho was consulted on admission and the patient was taken to the OR for right quadriceps tendon repair. The patient's leg was placed in the immobilizer. The patient had leukocytosis throughout hospitalization, but developed low-grade fever after surgery. All sources of infection were ruled out. CT of the brain was also negative due to intermittent AMS, likely baseline versus related to depression and anxiety. Psych was also consulted, who changed his psych medication. The patient was doing much better after psych medications were changed. He will be discharged to [facility] for further physical therapy. As his COVID was negative, he will be discharged today. He will follow up with primary care in 1 to 2 weeks and Surgery as discussed. The patient understands discharge instructions and agrees to plan. Vital signs stable. The patient is afebrile. Dictated by Lluvia Scott, BASE ENGINEER MD [place] Anguiano/VITA /[id number]
--- NOTE | 2020-04-10 18:07 | Progress Note ---
DATE: 04/06/2020 Psychiatric Progress Note SUBJECTIVE: The patient evaluated and events noted. The patient is in the room. He is alert, awake, and oriented to situation. He is in the room with the and the sitter is in the room. He has been intermittently restless at nighttime. He is getting p.r.n. medication. reports that he is confused and mostly gets restless only at nighttime. He is getting medications as needed p.r.n. No side effects seen or reported. ASSESSMENT: Unspecified psychosis. PLAN: 1. To add Seroquel 25 mg p.o. at bedtime. 2. Add Haldol p.r.n. IM. 3. Continue with p.r.n. Seroquel. 4. Continue with melatonin. 5. Continue with trazodone at bedtime. 6. Monitor for mood. 7. Supportive therapy. Dictated by Beryl Linares PA-C Brianna Gregorio MD QTV/VITA /[id number]
== END 2020-04-07 14:21 | DRG 501 ==
LOC: ER 04:30 → ERHOLD 07:00 → IMCU 09:33 → MED/SURG 04-02 21:01
PROVIDERS: ADMIT Internal Medicine; ATTEND Internal Medicine
PROC: 0LQL0ZZ Repair Right Upper Leg Tendon, Open Approach (ICD-10-PCS; principal; 2020-04-03 12:30)
DX: S76.111A Strain of right quadriceps muscle, fascia and tendon, initial encounter (principal); N17.9 Acute kidney failure, unspecified; S83.004A Unspecified dislocation of right patella, initial encounter; W01.0XXA Fall on same level from slipping, tripping and stumbling without subsequent striking against object, initial encounter; S61.210A Laceration without foreign body of right index finger without damage to nail, initial encounter; Y93.01 Activity, walking, marching and hiking; Y92.019 Unspecified place in single-family (private) house as the place of occurrence of the external cause; S60.512A Abrasion of left hand, initial encounter; S60.511A Abrasion of right hand, initial encounter; I10 Essential (primary) hypertension; E11.9 Type 2 diabetes mellitus without complications; E03.9 Hypothyroidism, unspecified; F41.9 Anxiety disorder, unspecified; K21.9 Gastro-esophageal reflux disease without esophagitis; E78.5 Hyperlipidemia, unspecified; E66.01 Morbid (severe) obesity due to excess calories; G25.81 Restless legs syndrome; R00.0 Tachycardia, unspecified; E83.42 Hypomagnesemia; G47.33 Obstructive sleep apnea (adult) (pediatric); F43.23 Adjustment disorder with mixed anxiety and depressed mood; F29 Unspecified psychosis not due to a substance or known physiological condition; R41.0 Disorientation, unspecified; Z68.39 Body mass index [BMI] 39.0-39.9, adult; Z83.3 Family history of diabetes mellitus; Z80.9 Family history of malignant neoplasm, unspecified; Z11.59 Encounter for screening for other viral diseases; Z79.82 Long term (current) use of aspirin; Z79.84 Long term (current) use of oral hypoglycemic drugs
CPT/HCPCS: 36415; 70450; 71045; 71250; 76000; 80048; 80053; 80061; 81001; 82140; 82550; 82553; 82948; 83036; 83605; 83735; 83880; 84100; 84443; 84484; 84550; 85025; 85610; 85730; 86850; 86900; 87040; 87086; 87635; 93005; 97139; 99251; 99285; J0330; J0360; J0456; J0690; J0696; J1100; J1644; J1885; J2001; J2060; J2250; J2270; J2405; J3010; J3360; J7030

== ENCOUNTER → 2020-05-09 | Day surgery (SDC) | payer MEDICARE, BC, OTHER ==
[2020-05-04 12:41] LABS: BASOPHILS % 0.5 % (0.0-1.0); EOSINOPHILS # (AUTO) 0.3 (0.0-0.4); EOSINOPHILS % 2.8 % (0.0-6.0); HEMATOCRIT 37.3 % (38.2-49.6); HEMOGLOBIN 11.6 g/dL (14.0-18.0); LYMPHOCYTES # (AUTO) 2.1 (1.0-3.2); LYMPHOCYTES % 23.8 % (18.0-39.1); MEAN CORPUSCULAR HEMOGLOBIN 28.2 pg (28-32); MEAN CORPUSCULAR HGB CONC 31.1 g/dL (31-35); MEAN CORPUSCULAR VOLUME 90.8 fL (81-99); MONOCYTES # (AUTO) 0.8 (0.2-0.8); MONOCYTES % 9.2 % (4.4-11.3); NEUTROPHILS # (AUTO) 5.6 (2.1-6.9); NEUTROPHILS % 63.2 % (38.7-80.0); PLATELET COUNT 296 x10e3/uL (140-360); RED BLOOD COUNT 4.11 x10e6/uL (4.3-5.7)
[2020-05-04 12:56] LABS: ANION GAP 14.4 mmol/L (8-16); BLOOD UREA NITROGEN 17 mg/dL (7-26); BUN/CREATININE RATIO 14 (6-25); CALCIUM 9.2 mg/dL (8.4-10.2); CARBON DIOXIDE 26 mmol/L (22-29); CHLORIDE 105 mmol/L (98-107); CREATININE, SERUM 1.19 mg/dL (0.72-1.25); EST GLOMERULAR FILTRATION RATE > 60 ML/MIN (60-); GLUCOSE 110 mg/dL (74-118); POTASSIUM 4.4 mmol/L (3.5-5.1); SODIUM 141 mmol/L (136-145)
[~2020-05-09] MED LIST changes: +ABILIFY5 MG PO; +ACETAMINOPHEN 1000 MG/100 ML 100 ML IV ONE; +AMBIEN10 MG PO; +BUPIVACAINE 0.25%/EPI 30ML SDV INJ ONE; +CEFAZOLIN SOD 1 GM/NS 50ML 50 ML IV ONE; +DESFLURANE 240 ML BTL INH ONE; +GLYCOPYRROLATE INJ 0.2 MG/ML VIAL ONE; +HYDROCODONE/APAP 7.5MG-325MG 1 EA TAB ONE; +HYDROMORPHONE 2MG/ML 2 MG/ML ML ONE; +KETOROLAC TROMETHAMINE 30 MG/ML VIAL ONE; +LABETALOL HCL 20 ML ONE; +LIDOCAINE HCL 2% LOCAL INJ 5 ML SDV VIAL INJ ONE; +METFORMIN HCL500 M2 PO; +NEOSTIGMINE 1 MG/ML 10ML VIAL ONE; +ONDANSETRON HCL INJ 2MG/ML 2ML 2 MG/ML VIAL ONE; +PRINIVIL20 MG PO; +PROPOFOL IV EMULSION 10 MG/ML 20 ML VIAL ONE; +ROCURONIUM BROMIDE 10 MG/ML 5ML VIAL IV ONE; +SPIRONOLACTONE25 MG PO; +TRAZODONE HCL50 MG PO; +VENLAFAXINE HC100 MG PO; +VITAMIN B-121000 MC1; +VITAMIN B-121000 MCG PO
--- NOTE | 2020-05-09 12:08 | Operative Report ---
DATE OF PROCEDURE: 05/09/2020 SURGEON: Duane Elliott MD BLOCK SETTER GYPSUM: Tapan Anthony, certified PA. PREOPERATIVE DIAGNOSIS: Recurrent right quadriceps tendon rupture. POSTOPERATIVE DIAGNOSIS: Recurrent right quadriceps tendon rupture. PROCEDURE: Revision right quadriceps tendon repair. INDICATIONS: The patient is a 64-year-old gentleman who is approximately five weeks status post a right quadriceps tendon rupture and repair. This was done at another hospital by another physician. He presented to my office after a fall. Clinic exam and his history were consistent with a failed repair. The risks and benefits of revision repair were explained. All of his questions were answered. The lengthy recovery was explained. He states he understands and wishes to proceed. DESCRIPTION OF PROCEDURE: The patient was brought to the operating room and placed under general anesthetic. He received prophylactic antibiotics in the holding area. His right lower extremity was prepped and draped in a sterile manner. A preoperative time-out was performed. The extremity was exsanguinated and a proximal tourniquet was inflated to 300 mmHg. The previous incision was opened. A large hematoma was evacuated from the wound. The wound did not appear to be infected. The wound was thoroughly irrigated with sterile saline. There were some previous FiberWire stitches that were woven into the quadriceps tendon. I did not detect any bone tunnels through the patella. Nor did I detect any distal sutures at the inferior pole of the patella. Time and care were taken to remove as much of the FiberWire stitches as possible from the tendon. The tendon was debrided back to a healthy tissue. There was approximately a cm of fibrous scar tissue before I reached tendon. #2 FiberWire stitch was woven into the medial and lateral aspects of the quad tendon. This left 4 tags coming from the distal aspect of the tendon. The superior pole of the patella was carefully decorticated with a curette and rongeur forceps. A 3.2 mm drill was used to create three vertical tunnels through the patella. A Cooley suture passer was used to pass the FiberWire stitches to the distal pole of patella. These were carefully secured with the knee held in full extension. Nice opposition of the tendon to the superior pole of the patella was accomplished. The FiberWire stitches were then tied to each other. A free needle was then used to pass the FiberWire stitches through the quad tendon again. These were tied over the distal portion of the quadriceps tendon one more time. The medial and lateral retinaculum were repaired with interrupted #1 Ethibond. The wound was further irrigated. The skin was closed with subcuticular Vicryl and marvin. A sterile bandage and a three-sided fiberglass splint were placed onto the knee. Estimated blood loss was 10 mL. At the end of the procedure, all needle and sponge counts were correct. Duane Elliott MD DR/VITA /[id number]
[2020-05-09 12:20] VITALS: BP 128/70
== END | disposition home or self-care (01) ==
LOC: OR 07:40
PROVIDERS: ATTEND Specialist
DX: S76.191A Other specified injury of right quadriceps muscle, fascia and tendon, initial encounter (principal); E11.9 Type 2 diabetes mellitus without complications; E78.00 Pure hypercholesterolemia, unspecified; G47.33 Obstructive sleep apnea (adult) (pediatric); F41.9 Anxiety disorder, unspecified; E66.01 Morbid (severe) obesity due to excess calories; I10 Essential (primary) hypertension; W19.XXXA Unspecified fall, initial encounter; Z01.812 Encounter for preprocedural laboratory examination; Z11.59 Encounter for screening for other viral diseases; Z79.82 Long term (current) use of aspirin; Z79.84 Long term (current) use of oral hypoglycemic drugs; Z68.41 Body mass index [BMI] 40.0-44.9, adult
CPT/HCPCS: 27385; 36415 ×2; 80048; 82948; 85025; J0131; J0690; J1170; J1885; J2001; J2405; J2704; J2710; U0002

== ENCOUNTER 2022-02-22 13:00 | Outpatient (RCR) | payer MEDICARE ==
[~2022-02-22 13:00] MED LIST changes: -ACETAMINOPHEN 1000 MG/100 ML 100 ML IV ONE; -BUPIVACAINE 0.25%/EPI 30ML SDV INJ ONE; -CEFAZOLIN SOD 1 GM/NS 50ML 50 ML IV ONE; -DESFLURANE 240 ML BTL INH ONE; -GLYCOPYRROLATE INJ 0.2 MG/ML VIAL ONE; -HYDROCODONE/APAP 7.5MG-325MG 1 EA TAB ONE; -HYDROMORPHONE 2MG/ML 2 MG/ML ML ONE; -KETOROLAC TROMETHAMINE 30 MG/ML VIAL ONE; -LABETALOL HCL 20 ML ONE; -LIDOCAINE HCL 2% LOCAL INJ 5 ML SDV VIAL INJ ONE; -NEOSTIGMINE 1 MG/ML 10ML VIAL ONE; -ONDANSETRON HCL INJ 2MG/ML 2ML 2 MG/ML VIAL ONE; -PROPOFOL IV EMULSION 10 MG/ML 20 ML VIAL ONE; -ROCURONIUM BROMIDE 10 MG/ML 5ML VIAL IV ONE
== END 2022-03-05 ==
LOC: PT 13:00
PROVIDERS: ATTEND Physician Assistant
DX: S46.011D Strain of muscle(s) and tendon(s) of the rotator cuff of right shoulder, subsequent encounter (principal)

== ENCOUNTER 2022-03-06 10:39 | Outpatient (RCR) | payer MEDICARE | END 2022-04-04 | LOC: PT 10:39 | PROVIDERS: ATTEND Physician Assistant | DX: S46.011D Strain of muscle(s) and tendon(s) of the rotator cuff of right shoulder, subsequent encounter (principal) ==

== ENCOUNTER 2022-11-20 07:31 | Inpatient (IN) | payer MEDICARE ==
[~2022-11-20] VITALS: Ht 185.4 cm; Wt 154.2 kg
[2022-11-20] VITALS (18 sets, daily range): BP systolic 98–147; BP diastolic 61–123
[2022-11-20] MEDS ORDERED: ALBUTEROL/IPRATROPIUM 3 ML NEB NEB ONE ×3 (07:45)
[2022-11-20] MEDS ORDERED: Vancomycin IV 1 GM in SODIUM CHLORIDE 0.9% 250ML 250 ML IV SCH ×5 (07:45→21:00)
[2022-11-20 07:51] LABS: BASOPHILS # (AUTO) 0.1 (0.0-0.1); BASOPHILS % 0.4 % (0.0-1.0); EOSINOPHILS # (AUTO) 0.2 (0.0-0.4); EOSINOPHILS % 1.6 % (0.0-6.0); HEMATOCRIT 47.2 % (38.2-49.6); HEMOGLOBIN 15.7 g/dL (14.0-18.0); LYMPHOCYTES # (AUTO) 1.9 (1.0-3.2); LYMPHOCYTES % 16.4 % (18.0-39.1); MEAN CORPUSCULAR HEMOGLOBIN 30.6 pg (28-32); MEAN CORPUSCULAR HGB CONC 33.3 g/dL (31-35); MONOCYTES # (AUTO) 1.1 (0.2-0.8); MONOCYTES % 9.7 % (4.4-11.3); NEUTROPHILS # (AUTO) 8.2 (2.1-6.9); NEUTROPHILS % 71.6 % (38.7-80.0); PLATELET COUNT 217 x10e3/uL (140-360); RED BLOOD COUNT 5.13 x10e6/uL (4.3-5.7); RED CELL DISTRIBUTION WIDTH 13.8 % (11.7-14.4)
[2022-11-20 08:11] LABS: INR 0.98; PROTHROMBIN TIME 13.2 seconds (11.9-14.5)
[2022-11-20 08:12] LABS: PARTIAL THROMBOPLASTIN TIME 30.3 seconds (23.8-35.5)
[2022-11-20 08:20] LABS: ALANINE AMINOTRANSFERASE 33 IU/L (0-55); ALBUMIN 4.3 g/dL (3.5-5.0); ALBUMIN/GLOBULIN RATIO 1.3 (0.8-2.0); ALKALINE PHOSPHATASE 55 IU/L (40-150); ANION GAP 15.7 mmol/L (8-16); BLOOD UREA NITROGEN 27 mg/dL (7-26); BUN/CREATININE RATIO 17 (6-25); CALCIUM 9.4 mg/dL (8.4-10.2); CARBON DIOXIDE 26 mmol/L (22-29); CHLORIDE 100 mmol/L (98-107); CREATINE KINASE 296 IU/L (30-200); GLUCOSE 151 mg/dL (74-118); POTASSIUM 4.7 mmol/L (3.5-5.1); SODIUM 137 mmol/L (136-145)
[2022-11-20 08:45] LABS: B-TYPE NATRIURETIC PEPTIDE2 < 5.0 pg/mL (0-100)
[2022-11-20] MEDS ORDERED: FUROSEMIDE INJ 10 MG/ML 4 ML VIAL IV ONE (09:15)
[2022-11-20] MEDS ORDERED: ONDANSETRON HCL INJ 2MG/ML 2ML 2 MG/ML VIAL IV PRN (09:15)
[2022-11-20 09:54] LABS: BACTERIA,URINE FEW /HPF; CLARITY,URINE CLEAR (CLEAR); COLOR,URINE YELLOW (YELLOW); EPITHELIAL CELLS,URINE FEW /LPF; KETONES,URINE NEGATIVE (NEGATIVE); LEUKOCYTE ESTERASE ,URINE NEGATIVE (NEGATIVE); NITRITE,URINE NEGATIVE (NEGATIVE); PROTEIN,URINE DIPSTICK NEGATIVE (NEGATIVE); RBC,URINE 0-5 /HPF (0-5); URINE UROBILINOGEN 0.2 mg/dL (0.2 - 1); WBC,URINE (MAN) 0-5 /HPF (0-5)
[2022-11-20] MEDS ORDERED: METOPROLOL TARTRATE INJ 1 MG/ML VIAL IV PRN ×2 (11:15→15:15)
[2022-11-20 12:25] LABS: ABG HCO3 34 mmol/L (22-26); ABG PCO2 57 mmHg (35-45); ABG PH 7.38 (7.35-7.45); ABG PO2 556 mmHg (80-105); ABG TCO2 35
[2022-11-20] MEDS ORDERED: SODIUM CHLORIDE 0.9% 1000ML 1,000 ML IV ONE (12:30)
[2022-11-20] MEDS ORDERED: ALBUTEROL/IPRATROPIUM 3 ML NEB NEB PRN (12:30)
[2022-11-20] MEDS ORDERED: ZOLPIDEM TARTRATE 10 MG TAB PO PRN (12:30)
[2022-11-20] MEDS ORDERED: TRAZODONE HCL 50 MG TAB PO PRN (12:30)
[2022-11-20] MEDS ORDERED: DEXTROSE 50% SYRINGE 50 ML IV PRN (12:45)
[2022-11-20] MEDS ORDERED: FUROSEMIDE INJ 10 MG/ML 4 ML VIAL ONE (14:41)
[2022-11-20 14:44] LABS: FREE T4 (FREE THYROXINE) 1.1 ng/dL (0.8-1.8); THYROID STIMULATING HORMONE 2.684 uIU/mL (0.350-4.940)
[2022-11-20] MEDS ORDERED: ACETAMINOPHEN 325 MG TAB PO PRN (15:15)
[2022-11-20] MEDS ORDERED: POLYETHYLENE GLYCOL 3350 17 GM PACK PO PRN (15:15)
[2022-11-20] MEDS: INSULIN REGULAR, HUMAN 100 UNIT/1 ML SQ SCH ×2 (16:15→21:00)
[2022-11-20] MEDS ORDERED: FAMOTIDINE 20 MG TAB PO SCH (16:30)
[2022-11-20] MEDS: FAMOTIDINE 20 MG TAB PO SCH (17:14)
[2022-11-20] MEDS: DOCUSATE SODIUM 100 MG CAP PO SCH (17:14)
[2022-11-20] MEDS ORDERED: PRAMIPEXOLE DIHYDROCHLORIDE 1 MG TAB PO SCH (21:00)
[2022-11-20] MEDS ORDERED: GABAPENTIN 400 MG CAP PO SCH (21:00)
[2022-11-20] MEDS ORDERED: SIMVASTATIN 20 MG TAB PO SCH (21:00)
[2022-11-21 01:14] VITALS: BP 125/77
[2022-11-21 05:19] VITALS: BP 131/78
[2022-11-21 07:08] LABS: BASOPHILS # (AUTO) 0.1 (0.0-0.1); BASOPHILS % 0.4 % (0.0-1.0); EOSINOPHILS # (AUTO) 0.3 (0.0-0.4); EOSINOPHILS % 2.3 % (0.0-6.0); HEMATOCRIT 48.2 % (38.2-49.6); HEMOGLOBIN 15.6 g/dL (14.0-18.0); LYMPHOCYTES # (AUTO) 2.6 (1.0-3.2); LYMPHOCYTES % 22.5 % (18.0-39.1); MEAN CORPUSCULAR HEMOGLOBIN 30.3 pg (28-32); MEAN CORPUSCULAR HGB CONC 32.4 g/dL (31-35); MEAN CORPUSCULAR VOLUME 93.6 fL (81-99); MONOCYTES # (AUTO) 1.3 (0.2-0.8); MONOCYTES % 11.7 % (4.4-11.3); NEUTROPHILS # (AUTO) 7.2 (2.1-6.9); NEUTROPHILS % 62.8 % (38.7-80.0); PLATELET COUNT 202 x10e3/uL (140-360); RED BLOOD COUNT 5.15 x10e6/uL (4.3-5.7); RED CELL DISTRIBUTION WIDTH 14.1 % (11.7-14.4)
[2022-11-21 07:11] LABS: ALBUMIN 3.8 g/dL (3.5-5.0); ALBUMIN/GLOBULIN RATIO 1.2 (0.8-2.0); CALCIUM 8.9 mg/dL (8.4-10.2); CREATININE, SERUM 1.39 mg/dL (0.72-1.25)
[2022-11-21 07:30] LABS: CHOL/HDL RATIO 2.8 (3.9-4.7); MAGNESIUM 2.2 MG/DL (1.3-2.1); PHOSPHORUS 4.6 MG/DL (2.3-4.7)
[2022-11-21] MEDS: INSULIN REGULAR, HUMAN 100 UNIT/1 ML SQ SCH (07:30)
[2022-11-21 07:43] LABS: CREATINE KINASE 343 IU/L (30-200)
[2022-11-21] MEDS ORDERED: ASPIRIN 325 MG TAB PO SCH (09:00)
[2022-11-21] MEDS ORDERED: BACITRACIN ZINC 15 GM OINT TOP SCH (09:00)
[2022-11-21] MEDS: DOCUSATE SODIUM 100 MG CAP PO SCH (09:59)
[2022-11-21] MEDS: FAMOTIDINE 20 MG TAB PO SCH (10:00)
[2022-11-21 10:01] VITALS: BP 136/82
[2022-11-21] MEDS ORDERED: SODIUM CHLORIDE 0.9% 250ML 250 ML ONE (10:21)
[2022-11-21] MEDS ORDERED: BUSPIRONE HCL5 MG PO (11:33)
[2022-11-21] MEDS ORDERED: JARDIANCE10 MG (11:33)
[2022-11-21] MEDS ORDERED: LEVOTHYROXINE50 MCG PO (11:33)
[2022-11-21] MEDS ORDERED: CARAFATE1 GM PO (11:33)
[2022-11-21] MEDS ORDERED: OLANZAPINE5 MG PO (11:33)
[2022-11-21] MEDS ORDERED: ATIVAN1 MG PO (11:33)
[2022-11-21] MEDS ORDERED: MULTI-VITAMIN1 EACH PO (11:33)
[2022-11-21] MEDS ORDERED: PHENERGAN25 MG/1 ML PO (11:33)
[2022-11-21] MEDS ORDERED: OLANZAPINE10 MG (11:33)
[2022-11-21] MEDS ORDERED: LASIX20 MG PO (11:33)
[2022-11-21] MEDS ORDERED: EFFEXOR XR150 MG PO (11:33)
[2022-11-21] MEDS ORDERED: SUCRALFATE 1 GM TAB PO PRN (12:45)
[2022-11-21] MEDS ORDERED: TRAMADOL HCL 50 MG TAB PO PRN (12:45)
[2022-11-21] MEDS ORDERED: PROMETHAZINE HCL 25 MG TAB PO PRN (12:45)
[2022-11-21] MEDS ORDERED: LORAZEPAM 1 MG TAB PO PRN (12:45)
[2022-11-21 13:03] VITALS: BP 149/93
[2022-11-21] MEDS ORDERED: DOXYCYCLINE HY100 MG PO (13:47)
[2022-11-21] MEDS ORDERED: CIPRO500 MG PO (13:47)
[2022-11-21] MEDS ORDERED: BACITRACIN15 GM TOP (13:47)
[2022-11-21] MEDS ORDERED: ARIPIPRAZOLE 2 MG TABLET PO SCH (21:00)
[2022-11-22] MEDS ORDERED: LEVOTHYROXINE SODIUM 50 MCG TAB PO SCH (06:00)
[2022-11-22] MEDS ORDERED: LISINOPRIL 20 MG TAB PO SCH (09:00)
[2022-11-22] MEDS ORDERED: CYANOCOBALAMIN 1,000 MCG TAB PO SCH (09:00)
== END 2022-11-21 15:02 | disposition home or self-care (01) | DRG 872 ==
LOC: ER 07:37 → ERHOLD 09:10 → ICU 19:10 → MED/SURG2 23:37
PROVIDERS: ADMIT Internal Medicine; ATTEND Internal Medicine
DX: A41.9 Sepsis, unspecified organism (principal); L03.116 Cellulitis of left lower limb; N17.9 Acute kidney failure, unspecified; Z68.41 Body mass index [BMI] 40.0-44.9, adult; J81.1 Chronic pulmonary edema; Z20.822 Contact with and (suspected) exposure to COVID-19; I10 Essential (primary) hypertension; F41.9 Anxiety disorder, unspecified; E03.9 Hypothyroidism, unspecified; K21.9 Gastro-esophageal reflux disease without esophagitis; F32.A Depression, unspecified; G47.00 Insomnia, unspecified; G25.81 Restless legs syndrome; W06.XXXA Fall from bed, initial encounter; Y92.003 Bedroom of unspecified non-institutional (private) residence as the place of occurrence of the external cause; E78.5 Hyperlipidemia, unspecified; M54.9 Dorsalgia, unspecified; G89.29 Other chronic pain; S91.311A Laceration without foreign body, right foot, initial encounter; E11.65 Type 2 diabetes mellitus with hyperglycemia; E66.01 Morbid (severe) obesity due to excess calories; Z79.82 Long term (current) use of aspirin
CPT/HCPCS: 36415; 36600; 51700; 71045; 71250; 80053; 80061; 81001; 82550; 82553; 82805; 82948; 83036; 83605; 83735; 83880; 84100; 84439; 84443; 84484; 85025; 85610; 85730; 87040; 87086; 93005; 94660; 94799; 99252; 99285; J1817; J1940; J2405; J2543; J3370; J7030; J7050

== ENCOUNTER 2025-01-10 07:54 | Emergency (ER) | payer MEDICARE, OTHER ==
[~2025-01-10] VITALS: Ht 185.4 cm; Wt 140.2 kg
[~2025-01-10 07:54] MED LIST changes: +AMOX TR-K CLV1 EAC2 PO; +ATIVAN1 MG PO; +B-122500 MCG; +BACITRACIN15 GM TOP; +BUSPIRONE HCL5 MG PO; +CARAFATE1 GM PO; +CIPRO500 MG PO; +COREG12.5 MG PO; +D3-5000125 MCG; +DOXYCYCLINE HY100 MG PO; +EFFEXOR XR150 MG PO; +FUROSEMIDE40 MG PO; +JARDIANCE10 MG; +JARDIANCE10 MG PO; +LASIX10 MG/ML PO; +LASIX20 MG PO; +LEVOTHYROXINE50 MCG PO; +MAG GLYCINATE100 MG; +MOUNJARO10 MG/0.5 SQ; +MOUNJARO5 MG/0.5 M SQ; +MULTI-VITAMIN1 EACH PO; +OLANZAPINE10 MG; +OLANZAPINE5 MG PO; +ONDANSETRON ODT4 MG PO; +ONE DAILY FOR1 EAC1; +OZEMPIC1 MG/0.71; +PHENERGAN25 MG/1 ML PO; +PROTONIX20 MG PO; +SYNTHROID50 MCG PO; +VIIBRYD20 MG PO; +VYTORIN 10-201 EACH PO
[2025-01-10 08:00] VITALS: RESP 20; TEMP 98.1
[2025-01-10] MEDS: LORAZEPAM INJ 2 MG/ML VIAL IV ONE (09:40)
[2025-01-10 10:19] VITALS: PULSE 112; O2SAT 94
[2025-01-10] MEDS ORDERED: IOPAMIDOL 370 MG/ML 100 ML INFUS..BTL INJ ONE (10:43)
== END 2025-01-10 12:56 | disposition home or self-care (01) ==
LOC: FSED 09:06
DX: I10 Essential (primary) hypertension (principal); R00.0 Tachycardia, unspecified; E11.65 Type 2 diabetes mellitus with hyperglycemia; E78.5 Hyperlipidemia, unspecified; M54.9 Dorsalgia, unspecified; G89.29 Other chronic pain; F41.9 Anxiety disorder, unspecified; F32.A Depression, unspecified; R94.31 Abnormal electrocardiogram [ECG] [EKG]
CPT/HCPCS: 71260; 80053; 84484; 85025; 85379; 93005; 96374; 99283; J2060; Q9967